=== PATIENT | male | born 1965 | race Caucasian/White ===

== ENCOUNTER 2018-10-06 14:05 | Observation (INO) ==
--- NOTE | 2018-10-06 15:31 | Emergency Department Note ---
Disposition Clinical Impression: Hyponatremia Disposition: Admitted As Inpatient Condition: Fair Referrals: Sharla Bryant, DISPLAYER [Primary Care Provider] - Time of Disposition: 15:32 Recheck wound or abnormal lab - General Chief Complaint: ED Recheck/Abnormal Lab/Rx Stated Complaint: sent per PCP low sodium Time Seen by Provider: 10/06/18 14:37 Source: patient Mode of arrival: private vehicle Limitations: no limitations Nursing Notes Reviewed: Yes Vital Signs Reviewed: Yes - History of Present Illness Pt Subjective Complaint: abnormal lab(s) Initial Visit (ago): hour(s) Initial Visit For: other (Was seen this morning for lab work because he started seeing a new physician.) Description of Abnormal Result: Reportedly has low sodium. Symptoms Since Prior Visit: no new symptoms Context: called for abnormal lab result Associated symptoms: none - Related Data Home Medications Medication Instructions Recorded Confirmed Lisinopril-HCTZ 10-12.5 [Prinzide 1 each PO DAILY 10/06/18 10/06/18 10-12.5] Allergies Allergy/AdvReac Type Severity Reaction Status Date / Time No Known Allergies Allergy Verified 08/14/17 15:47 All systems ED: reviewed and negative except as stated. Constitutional: Denies: fever, chills ENT ED: Denies: ear pain, throat pain, congestion Cardiovascular: Denies: chest pain, palpitations Respiratory: Denies: cough, dyspnea, wheezes Gastrointestinal: Denies: abdominal pain, nausea, vomiting Musculoskeletal: Denies: back pain Integumentary: Denies: rash Neurological: Denies: headache, weakness, numbness, paresthesias Past Medical History - Past Medical History Attestation: Yes The following information was validated with the patient. Source: patient, old records reviewed, obtained from family, nursing notes reviewed Medical history: Reports: hypertension, seizures, other Surgical history: Reports: cholecystectomy Psychiatric history: Reports: no psych history - Social History Smoking Status: Current every day smoker Smokeless Tobacco Status: No Alcohol use: Reports: heavy Drug use: Reports: none Physical Exam - General Limitations: no limitations General appearance: alert, in no apparent distress - Head Head exam: atraumatic, normocephalic, normal inspection - Eye Eye exam: Present: normal appearance, PERRL, EOMI. Absent: scleral icterus, conjunctival injection, periorbital swelling - ENT ENT exam: normal exam, normal oropharynx, mucous membranes moist, normal external ear exam - Neck Neck exam: Present: normal inspection, full ROM, trachea midline, tenderness. Absent: meningismus - Chest Chest inspection: Present: normal inspection, symmetric chest wall rise. Absent: tenderness - Respiratory Respiratory exam: Present: normal lung sounds bilaterally. Absent: respiratory distress, wheezes - Cardiovascular Cardiovascular exam: Present: regular rate, normal rhythm, normal heart sounds - Abdominal Exam Abdominal exam: Present: soft, Non-Tender, normal bowel sounds - Extremities Exam Extremities exam: Present: normal inspection. Absent: pedal edema - Neurological Exam Neurological exam: Present: alert, oriented X3, normal gait. Absent: motor sensory deficit - Psychiatric Psychiatric exam: Present: normal affect, normal mood - Skin Skin exam: Present: warm, dry. Absent: rash Course Course Narrative: Patient presents emergent from the low sodium by lab work. He had seen a new doctor for the first time in 3 years a few days ago. That order labs. He waiting at the labs this morning and then was called back by the office stating that his sodium was low. Talking with the patient has a chronic history of low sodium. He apparently drinks every day. He has had previous admissions for low sodium. When I review his old medical records I see low sodiums frequently. Today's sodium was 1:15. Last year he had an admission in September for sodium 117 as well. Otherwise to sodium seems to run between 123 and 129. Going back to July 2017. Patient is completely asymptomatic. He was only getting the labs as part of getting plugged in with a new doctor. He was not having any symptoms and would not of come to the emergency department had a not called him at this low sodium. On physical examination there are no abnormalities.. Patient needs to be admitted to the hospital for this low sodium but I think he needs hypertonic saline because his hyponatremia is chronically low and he is completely asymptomatic at this point. I will start him on normal saline. I will speak with the hospitalist and arrange admission. - Consultations Consultation #1: Dr. Wylie, hospitalist - I discussed case with the hospitalist. He agrees with normal saline. He is accepted the patient for admission to the hospital. Time: 15:31 Vital Signs Temperature 97.4 F L 10/06/18 14:06 Pulse Rate 85 10/06/18 14:06 Respiratory Rate 16 10/06/18 14:06 Blood Pressure 151/90 10/06/18 14:06 O2 Sat by Pulse Oximetry 99 10/06/18 14:06 Temperature 97.4 F L 10/06/18 14:06 Pulse Rate 82 10/06/18 14:59 Respiratory Rate 16 10/06/18 14:59 Blood Pressure 135/92 10/06/18 14:59 O2 Sat by Pulse Oximetry 100 10/06/18 14:59 Oxygen Delivery Oxygen Delivery Room Air Recheck wound or abnormal lab - Medical Records Medical records reviewed: Yes I reviewed the patient's medical records. - Lab Data Lab results reviewed: Yes I reviewed the patient's lab results. - EKG Data EKG attestation: Yes I reviewed and interpreted this EKG. EKG results narrative: Twelve-lead EKG performed at 14 12 PM. Ordered, reviewed and interpreted by ED physician shows sinus rhythm at a rate of 82. Normal axis. Good hour progression across her precordium. No acute ischemic changes. Intervals are within normal limits.
[2018-10-06] MEDS ORDERED: Naloxone 0.4 MG/ML INJ IVP PRN (16:30)
[2018-10-06] MEDS ORDERED: 0.9 % Sodium Chloride 1,000 ML IVC SCH (16:30)
[2018-10-06] MEDS ORDERED: ALPRAZolam 0.5 MG TABLET PO PRN (18:19)
[2018-10-06] MEDS: Nicotine 21 MG PATCH.TD24 TD SCH (18:26)
[2018-10-06] MEDS ORDERED: 0.9 % Sodium Chloride w KCl 20 MEQ/1,000 ML MLS IVC SCH (18:30)
[2018-10-06] MEDS ORDERED: cefTRIAXone 1,000 MG in Water for inj. (sterile) 20 ML 10 ML IVPB ONE (18:49)
[2018-10-06] MEDS: Cholecalciferol (D-3) 1,000 UNIT TABLET PO SCH (20:09)
[2018-10-07 06:38] LABS: Basophils % 0.6 %; Eosinophils % 0.4 %; Hematocrit 29.1 % (37.5-50.1); Hemoglobin 10.7 g/dL (12.9-16.9); Immature Granulocytes % 1.4 % (0-4); Lymphocytes # 1.7 K/mcL (0.6-4.6); Lymphocytes % 23.2 %; Mean Corpuscular HGB Conc 36.8 g/dL (31.6-35.5); Mean Corpuscular Hemoglobin 34.2 pg (28.0-33.3); Mean Platelet Volume 8.3 fL (9.4-12.4); Monocytes # 0.5 K/mcL (0.0-1.3); Monocytes % 7.2 %; Neutrophils # 4.9 K/mcL (1.6-8.9); Platelet Count 205 K/mcL (140-400); Red Blood Count 3.13 M/mcL (4.19-5.50); Red Cell Distribution Width 11.9 % (11.5-14.5); Segmented Neutrophils % 67.2 %
[2018-10-07 06:54] LABS: Magnesium 1.6 mg/dL (1.6-2.6); Phosphorous 2.6 mg/dL (2.7-4.5)
[2018-10-07 07:02] LABS: BUN/Creatinine Ratio 8 (6-26); Blood Urea Nitrogen 3 mg/dL (6-20); Calcium 7.7 mg/dL (8.6-10.3); Carbon Dioxide 20 mEq/L (23-29); Chloride 91 mEq/L (98-107); Glucose 91 mg/dL (70-105); Osmolality,Calculated 236 (280-300); Potassium 3.8 mEq/L (3.5-5.1); Sodium 115 mEq/L (136-145); eGFR For Non-African Americans > 60 (> 60)
[2018-10-07] MEDS: Cholecalciferol (D-3) 1,000 UNIT TABLET PO SCH (07:57)
[2018-10-07] MEDS: Nicotine 21 MG PATCH.TD24 TD SCH (07:57)
[2018-10-07 10:44] VITALS: BP 128/90
--- NOTE | 2018-10-07 11:55 | Internal Med History&Physical ---
Date of Encounter: 10/07/18 Time of Encounter: 11:20 Assessment and Plan (1) Hyponatremia Current visit: Yes Status: Acute Acute on chronic. Possibly multifactorial etiology including alcohol intake and diuretic use. He has been started on normal saline IV. Lisinopril/HCTZ will be discontinued. (2) Hypophosphatemia Current visit: Yes Status: Acute Phosphorus level slightly low at 2.6. He will be given a dose of Neutra-Phos. (3) Low vitamin D level Current visit: Yes Status: Acute Vitamin D level returned low at 12. He will start vitamin D supplementation. (4) Hematuria Current visit: Yes Status: Acute Suspect UTI. He was given a dose of Rocephin empirically after admission. Qualifiers: Hematuria type: unspecified type Qualified Code(s): R31.9 - Hematuria, unspecified (5) COPD (chronic obstructive pulmonary disease) Current visit: Yes Status: Chronic Presumed. Chest CT will be done to further evaluate. Room air oximetry will be checked on 6 minute walk prior to discharge. Qualifiers: COPD type: unspecified COPD Qualified Code(s): J44.9 - Chronic obstructive pulmonary disease, unspecified (6) Alcoholism /alcohol abuse Current visit: No Status: Chronic Internal Medicine - H&P: HPI Chief complaint: Hyponatremia Admitted From: Emergency Dept Plans for Post Hospital Care: Home History of present illness: Mr. Self is a 53 year old male who was directed by staff at his PCP office to go to emergency room after labs drawn earlier in the day showed sodium level of 115. Patient denies symptoms. He came to emergency room and was admitted to [facility] floor for ongoing care needs. He has chronic hyponatremia with all lab tests since July 2017 showing hyponatremia. He is on lisinopril/HCTZ for hypertension and was unaware that the HCTZ component could cause hyponatremia. He has been prescribed salt tablets but states he quit taking them approximately one month ago. He is an alcoholic and drinks 6-12 beers per day generally. Past Med Surg Social Fam HX - Past Medical History Medical history: arthritis, hypertension, seizures, other Additional medical history: pt states he has arthritis in bilateral hips and left shoulder Psychiatric history: no psych history - Past Surgical History Surgical History: cholecystectomy - Social History Smoking Status: Current every day smoker Smokeless Tobacco Status: No Alcohol use: heavy Drug use: none Internal Medicine - H&P: Meds Lisinopril-HCTZ 10-12.5 [Prinzide 10-12.5] 1 each PO DAILY 10/06/18 [History] Allergy/AdvReac Type Severity Reaction Status Date / Time No Known Allergies Allergy Verified 08/14/17 15:47 All Systems PM: A 10-system review of systems was performed and is negative for pertinent findings except as documented above in the HPI. Review of systems: Gen.: His weight has been stable at approximately 63 kg since July 2017. Cardiovascular: He has history of hypertension but denies NV heart failure angina DVT or pulmonary embolus Respiratory: He has smoked since age 10 up to 2 packs per day. He denies known chronic lung disease and does not use home oxygen. GI: He has had cholecystectomy. He denies known disorders of his liver or exocrine pancreas : He denies hematuria dysuria or kidney stones Neurologic: He had a seizure with hospitalization August 2017 at [facility]. The seizure was felt to be due to hyponatremia with alcohol abuse. He does not take seizure medication. He denies large distribution strokes. He states he falls occasionally at home. Endocrine: He denies diabetes thyroid disease or hyperlipidemia Hematology/oncology: He was unaware he had anemia on labs drawn yesterday. He denies known internal malignancies other blood disorders. Psychiatric: He has anxiety but denies depression or other mental health issues [place] skeletal: He has history of low vitamin D level. 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 He has bilateral hip pain, right greater than left. He denies gout. - Constitutional Vitals: Temp Pulse Resp BP Pulse Ox 98.6 F 83 16 128/90 100 10/07/18 10:43 10/07/18 10:43 10/07/18 10:43 10/07/18 10:43 10/07/18 10:43 Exam: Gen.: He is a well-developed lean male lying in bed who appears in no acute distress HEENT: He has ecchymosis on his chin just left of midline. Eyes: EOMI. There is some conjunctival erythema bilaterally. He has slight exophthalmos. Mouth: Mucosa is moist. Neck: There is no thyromegaly or adenopathy noted. Heart: Regular without murmurs gallops or ectopics Lungs: Has diminished breath sounds diffusely. No wheezes or crackles are heard. Abdomen: Soft and nontender. No masses or guarding are noted. Extremities: There is no cyanosis edema or clubbing noted. Dorsalis pedis and posterior tibial pulses are trace palpable bilaterally. Neurologic: Mental status: He is talkative and a good historian. Cranial nerves: Smile is symmetric. Forehead wrinkles bilaterally. Tongue protrudes midline. EOMI. Motor: There is no pronator drift. Cerebellar: Finger to nose is intact bilaterally. Skin: Warm and dry Internal Med - H&P Results - Labs CBC & Chem 7: 10/07/18 06:20 10/07/18 06:20 Labs: Short CBC 10/07/18 Range/Units 06:20 WBC 7.2 (4.3-11.1) K/mcL Hgb 10.7 L D (12.9-16.9) g/dL Hct 29.1 L (37.5-50.1) % Plt Count 205 (140-400) K/mcL Neutrophils # 4.9 (1.6-8.9) K/mcL BMP 10/07/18 06:20 Sodium 115 L* Potassium 3.8 Chloride 91 L Carbon Dioxide 20 L BUN 3 L Creatinine 0.36 L Glucose 91 Calcium 7.7 L
--- NOTE | 2018-10-07 14:26 | Discharge Summary ---
Orders not resulted at time of discharge: Pending orders 10/07/18 11:53 Urinalysis Reflex Cult & Micro [URIN] Routine Date of Encounter: 10/07/18 Time of Encounter: 14:15 - Discharge Diagnosis (1) Hyponatremia Priority: Primary Status: Acute (2) Hypophosphatemia Priority: Secondary Status: Acute (3) Low vitamin D level Priority: Secondary Status: Acute (4) Hematuria Priority: Secondary Status: Acute Qualifiers: Hematuria type: unspecified type Qualified Code(s): R31.9 - Hematuria, unspecified (5) COPD (chronic obstructive pulmonary disease) Priority: Secondary Status: Chronic Qualifiers: COPD type: unspecified COPD Qualified Code(s): J44.9 - Chronic obstructive pulmonary disease, unspecified (6) Alcoholism /alcohol abuse Priority: Secondary Status: Chronic Hospital course: Mr. Self is a 53 year old male who was directed by staff at his PCP office to go to emergency room after labs drawn earlier in the day showed sodium level of 115. Patient denies symptoms. He came to emergency room and was admitted to [facility] for ongoing care needs. Initial orders were written by the emergency room physician. I saw him on October 07 and performed the history and physical. I felt his hyponatremia was possibly multifactorial etiology including high alcohol intake and diuretic use. I discontinued the lisinopril/HCTZ. He was given IV normal saline but sodium was unchanged at 115 the morning of October 07. Chest, abdomen, and pelvis CT were done to further evaluate. There was no evidence of metastatic disease present. He had ground glass infiltrates in the right lower and left upper lobes presumably infectious/inflammatory. Recommendation for consideration for repeat CT scan in 3 months was made. His PCP can order this. There was a 4 mm right upper lobe nodule most likely benign. There was moderate T12 compression fracture and mild compression fractures at L2 and L3 which appeared chronic but new since August 2017. There was left seventh through ninth rib fractures with seventh rib fracture appearing acute and others indeterminate. Room air oximetry on 6 minute walk showed satisfactory oxygenation. The early afternoon of October 07 the patient became adamant he was not staying in the hospital any longer. He signed out AMA before I could review the results of CT with him. His PCP Sharla Bryant can follow-up on lung abnormality seen on CT. I recommend he remain off lisinopril/HCTZ. - Time Spent with Patient Total time spent providing and/or coordinating discharge services: - Discharge Medications Prescriptions: No Action Lisinopril-HCTZ 10-12.5 [Prinzide 10-12.5] 1 each PO DAILY Home Medications: Lisinopril-HCTZ 10-12.5 [Prinzide 10-12.5] 1 each PO DAILY 10/06/18 [History] Allergies/Adverse Reactions: Allergy/AdvReac Type Severity Reaction Status Date / Time No Known Allergies Allergy Verified 08/14/17 15:47 Date of admission: 10/06/18 15:51 Primary care physician: Sharla Bryant CNP - Constitutional Vitals: Temp Pulse Resp BP Pulse Ox 98.6 F 83 16 128/90 97 10/07/18 10:43 10/07/18 10:43 10/07/18 10:43 10/07/18 10:43 10/07/18 12:45 - Patient Status Disposition: Left Against Medical Advice Condition: Fair - Discharge Instructions Follow Up With: Sharla Bryant CNP [Primary Care Provider] - 1 week
--- NOTE | 2018-10-07 15:30 | Electrocardiograph Report ---
[place] [id number] Test Date: 2018-10-06 Pat Name: Johnathan Self Department: EDP-16 Room: [facility] Gender: M Test Case Developer: : 1965 Requested By: Anthony Malik Order Number: [id number] Reading MD: Mikhail Romo Measurements Intervals [place] Rate: 82 P: 54 WV: 213 QRS: 97 QRSD: 109 T: 42 QT: 388 QTc: 454 Interpretive Statements Sinus rhythm Prolonged [place] interval Borderline right axis deviation Probable anteroseptal infarct, old Electronically Signed On 10-07-2018 15:28:27 EDT by Mikhail oRmo
== END 2018-10-07 13:00 | disposition left against medical advice (07) ==
LOC: INPPIK 14:05 → EMEROOPIK 14:05 → INPPIK 16:11
PROVIDERS: ADMIT Internal Medicine; ATTEND Internal Medicine

== ENCOUNTER 2018-12-11 10:11 | Inpatient (IN) ==
[2018-12-11] MEDS ORDERED: 0.9 % Sodium Chloride 1,000 ML IVC ONE (10:26)
[2018-12-11] MEDS ORDERED: Ondansetron 4 MG/2 ML VIAL IVP ONE (10:26)
--- NOTE | 2018-12-11 10:36 | Emergency Department Note ---
Disposition Clinical Impression: Acute pancreatitis Qualifiers: Pancreatitis type: alcohol induced Acute pancreatitis complication: no infection or necrosis Qualified Code(s): K85.20 - Alcohol induced acute pancreatitis without necrosis or infection Disposition: Admitted As Inpatient Condition: Fair Referrals: NONE,PCP [Non-Partnered Physician] - Forms: ED Satisfaction Letter, Work/School Release Time of Disposition: 12:12 Nausea/Vomiting/Diarrhea HPI - General Chief complaint: ED Abdominal Pain Stated complaint: vomiting Time Seen by Provider: 12/11/18 10:18 Source: patient, family Mode of arrival: private vehicle Limitations: no limitations Nursing Notes Reviewed: Yes Vital Signs Reviewed: Yes - History of Present Illness Pt Subjective Complaint: nausea, vomiting Onset (ago): day(s) (3 days) Description of emesis: food contents, watery Associated Abdominal Pain: Yes If pain, Location of pain: LUQ, RUQ, epigastric Severity: moderate Quality: aching Consistency: constant Improves with: nothing Worsens with: eating Context: alcohol abuse, other (History of hyponatremia) Associated symptoms: Reports: denies other symptoms - Related Data Home Medications Medication Instructions Recorded Confirmed Lisinopril-HCTZ 10-12.5 [Prinzide 1 each PO DAILY 10/06/18 12/11/18 10-12.5] Allergies Allergy/AdvReac Type Severity Reaction Status Date / Time No Known Allergies Allergy Verified 12/11/18 10:12 All systems ED: reviewed and negative except as stated. Constitutional: Denies: fever, chills Eyes: Denies: vision change ENT ED: Denies: ear pain, throat pain, congestion Cardiovascular: Denies: chest pain, palpitations Respiratory: Denies: cough, dyspnea, wheezes Gastrointestinal: Reports: abdominal pain, nausea, vomiting. Denies: diarrhea Genitourinary: Denies: urgency, dysuria Musculoskeletal: Denies: back pain Integumentary: Denies: rash Neurological: Denies: headache Past Medical History - Past Medical History Attestation: Yes The following information was validated with the patient. Source: patient, old records reviewed, obtained from family, nursing notes reviewed Medical history: Reports: arthritis, hypertension, seizures, other Surgical history: Reports: cholecystectomy Psychiatric history: Reports: no psych history, depression - Social History Smoking Status: Current every day smoker Smokeless Tobacco Status: No Alcohol use: Reports: heavy Drug use: Reports: none Physical Exam - General Limitations: no limitations General appearance: alert, in no apparent distress - Head Head exam: atraumatic, normocephalic, normal inspection - Eye Eye exam: Present: normal appearance, PERRL, EOMI. Absent: scleral icterus, conjunctival injection - ENT ENT exam: normal exam, normal oropharynx, mucous membranes moist, normal external ear exam - Neck Neck exam: Present: normal inspection, full ROM, trachea midline. Absent: meningismus - Chest Chest inspection: Present: normal inspection, symmetric chest wall rise. Absent: tenderness - Respiratory Respiratory exam: Present: normal lung sounds bilaterally. Absent: respiratory distress, wheezes - Cardiovascular Cardiovascular exam: Present: regular rate, normal rhythm, normal heart sounds - Abdominal Exam Abdominal exam: Present: soft, tenderness. Absent: distention Abdominal tenderness: Present: RUQ, LUQ, epigastrium - Extremities Exam Extremities exam: Present: normal inspection. Absent: pedal edema - Neurological Exam Neurological exam: Present: alert, oriented X3 - Psychiatric Psychiatric exam: Present: normal affect, normal mood - Skin Skin exam: Present: warm, dry. Absent: rash Course Course Narrative: Patient presents with nausea and vomiting for the past few days. He has a history of alcoholism and hyponatremia. Recent hospitalization in September for severe hyponatremia of 1:15. All of his symptoms could be related to hy ponatremia. However he does have abdominal discomfort and tenderness. That might be soreness due to vomiting but it could be hepatitis or pancreatitis so we will need to look at those issues as well. I will get him medications for symptom relief. Started him on normal saline. Disposition will be based on diagnostic results and reevaluation. - Reevaluation(s) Reevaluation #1: Workup shows elevated lipase and the CAT scan shows pancreatitis without, lo cation. Sodium level is 123 which is low but significantly better than it has been in the past. This issue is acute pancreatitis. I discussed with the patient the diagnosis and management plan. He is not sure he can stay a couple days in the hospital but is willing to at least overnight. I will go ahead and get him admitted. Already spoken with the hospitalist, Dr. Wylie. He has septic patient for admission. The patient is a smoker so we will get him a nicotine patch. He is also a drinker so I will schedule Ativan to at least take some of the edge off. He has not drank in 2 days and denies ever having had a trouble with shakes after drinking but his hands do seem a little twitchy right now. Over his mental status is normal and he shows no signs of DTs. Time: 12:10 - Consultations Consultation #1: Dr. Wylie, hospitalist - I discussed case with the hospice. He accepted the patient for admission. Time: 11:50 Vital Signs Temperature 98.1 F 12/11/18 10:15 Pulse Rate 96 12/11/18 10:15 Respiratory Rate 18 12/11/18 10:15 Blood Pressure 161/114 12/11/18 10:15 O2 Sat by Pulse Oximetry 98 12/11/18 10:15 Temperature 98.1 F 12/11/18 10:15 Pulse Rate 80 12/11/18 11:14 Respiratory Rate 20 12/11/18 11:14 Blood Pressure 153/104 12/11/18 11:14 O2 Sat by Pulse Oximetry 99 12/11/18 11:14 Oxygen Delivery Oxygen Delivery Room Air Nausea/Vomiting/Diarrhea - Medical Records Medical records reviewed: Yes I reviewed the patient's medical records. - Lab Data Lab results reviewed: Yes I reviewed the patient's lab results. Result diagrams: 12/11/18 10:57 12/11/18 10:57 Lab Results 12/11/18 12/11/18 12/11/18 Range/Units 10:35 10:35 10:57 WBC 11.5 H (4.3-11.1) K/mcL RBC 4.42 (4.19-5.50) M/mcL Hgb 15.1 (12.9-16.9) g/dL Hct 41.0 (37.5-50.1) % MCV 92.8 (83.0-100.0) fL MCH 34.2 H (28.0-33.3) pg MCHC 36.8 H (31.6-35.5) g/dL RDW 12.8 (11.5-14.5) % Plt Count 247 (140-400) K/mcL MPV 8.4 L (9.4-12.4) fL Immature Gran % 0.4 (0-4) % Seg Neutrophils % 79.3 % Lymphocytes % 13.6 % Monocytes % 6.4 % Eosinophils % 0.0 % Basophils % 0.3 % Neutrophils # 9.1 H (1.6-8.9) K/mcL Lymphocytes # 1.6 (0.6-4.6) K/mcL Monocytes # 0.7 (0.0-1.3) K/mcL Eosinophils # 0.0 (0.0-0.6) K/mcL Basophils # 0.0 (0.0-0.2) K/mcL PT (9.4-12.1) Seconds INR APTT (26.0-36.0) Seconds Sodium (136-145) mEq/L Potassium (3.5-5.1) mEq/L Chloride (98-107) mEq/L Carbon Dioxide (23-29) mEq/L BUN (6-20) mg/dL Creatinine (0.70-1.30) mg/dL Est GFR ( Amer) (> 60) Est GFR (Non-Af Amer) (> 60) BUN/Creatinine Ratio (6-26) Glucose (70-105) mg/dL Calculated Osmolality (280-300) Lactic Acid (0.5-2.2) mmol/L Calcium (8.6-10.3) mg/dL Total Bilirubin (0.3-1.0) mg/dL Direct Bilirubin (0.0-0.2) mg/dL Indirect Bilirubin (0.0-1.2) mg/dL AST (13-39) Units/L ALT (7-52) Units/L Alkaline Phosphatase (34-104) Units/L Troponin I (< 0.04) ng/mL Serum Total Protein (6.4-8.9) g/dL Albumin (3.5-5.7) g/dL Globulin (2.4-3.5) g/dL Albumin/Globulin Ratio (1.1-2.2) Lipase (11-82) Units/L Urine Color Yellow (Yellow) Urine Clarity Turbid A (Clear) Urine pH 7.0 (5.0-8.0) pH Units Ur Specific [place] 1.020 (1.010-1.025) Urine Protein 100 H (Neg-Trace) mg/dL Urine Glucose (UA) Normal (Normal) mg/dL Urine Ketones Trace H (Negative) mg/dL Urine Blood Large H (Negative) Urine Nitrite Negative (Negative) Urine Bilirubin Small H (Negative) Urine Urobilinogen Normal (Normal) mg/dL Ur Leukocyte Esterase Large H (Negative) Urine Microscopic RBC TNTC H (0-3) per hpf Urine Microscopic WBC TNTC H (0-3) per hpf Urine Bacteria Moderate H (None-Few) per hpf Urine Mucus Few (Few) Ur Culture Indicated? YES A (NO) Urine Opiates Screen Negative (Rmvqcg=247) ng/mL Ur Oxycodone Screen Negative (Cutoff= 100) ng/mL Ur Barbiturates Screen Negative (Xdygut=446) ng/mL Ur Phencyclidine Scrn Negative (Cutoff=25) ng/mL Ur Amphetamines Screen Negative (Sktaci=3247) ng/mL U Benzodiazepines Scrn Negative (Wolyjj=903) ng/mL Urine Cocaine Screen Negative (Cutoff= 300) ng/mL U Marijuana (THC) Screen Negative (Cutoff = 50) ng/mL Ur Drug Screen Interp See Below Ethyl Alcohol (Less than 10) mg/dL 12/11/18 12/11/18 12/11/18 Range/Units 10:57 10:57 10:57 WBC (4.3-11.1) K/mcL RBC (4.19-5.50) M/mcL Hgb (12.9-16.9) g/dL Hct (37.5-50.1) % MCV (83.0-100.0) fL MCH (28.0-33.3) pg MCHC (31.6-35.5) g/dL RDW (11.5-14.5) % Plt Count (140-400) K/mcL MPV (9.4-12.4) fL Immature Gran % (0-4) % Seg Neutrophils % % Lymphocytes % % Monocytes % % Eosinophils % % Basophils % % Neutrophils # (1.6-8.9) K/mcL Lymphocytes # (0.6-4.6) K/mcL Monocytes # (0.0-1.3) K/mcL Eosinophils # (0.0-0.6) K/mcL Basophils # (0.0-0.2) K/mcL PT (9.4-12.1) Seconds INR APTT 33.5 (26.0-36.0) Seconds Sodium 123 L (136-145) mEq/L Potassium 3.3 L (3.5-5.1) mEq/L Chloride 86 L (98-107) mEq/L Carbon Dioxide 27 (23-29) mEq/L BUN 4 L (6-20) mg/dL Creatinine 0.61 L (0.70-1.30) mg/dL Est GFR ( Amer) > 60 (> 60) Est GFR (Non-Af Amer) > 60 (> 60) BUN/Creatinine Ratio 7 (6-26) Glucose 124 H (70-105) mg/dL Calculated Osmolality 254 L (280-300) Lactic Acid 1.9 (0.5-2.2) mmol/L Calcium 9.1 (8.6-10.3) mg/dL Total Bilirubin 0.7 (0.3-1.0) mg/dL Direct Bilirubin 0.1 (0.0-0.2) mg/dL Indirect Bilirubin 0.6 (0.0-1.2) mg/dL AST 32 (13-39) Units/L ALT 24 (7-52) Units/L Alkaline Phosphatase 109 H (34-104) Units/L Troponin I (< 0.04) ng/mL Serum Total Protein 7.2 (6.4-8.9) g/dL Albumin 3.4 L (3.5-5.7) g/dL Globulin 3.8 H (2.4-3.5) g/dL Albumin/Globulin Ratio 0.9 L (1.1-2.2) Lipase (11-82) Units/L Urine Color (Yellow) Urine Clarity (Clear) Urine pH (5.0-8.0) pH Units Ur Specific [place] (1.010-1.025) Urine Protein (Neg-Trace) mg/dL Urine Glucose (UA) (Normal) mg/dL Urine Ketones (Negative) mg/dL Urine Blood (Negative) Urine Nitrite (Negative) Urine Bilirubin (Negative) Urine Urobilinogen (Normal) mg/dL Ur Leukocyte Esterase (Negative) Urine Microscopic RBC (0-3) per hpf Urine Microscopic WBC (0-3) per hpf Urine Bacteria (None-Few) per hpf Urine Mucus (Few) Ur Culture Indicated? (NO) Urine Opiates Screen (Vmjfkx=526) ng/mL Ur Oxycodone Screen (Cutoff= 100) ng/mL Ur Barbiturates Screen (Lnrnkw=788) ng/mL Ur Phencyclidine Scrn (Cutoff=25) ng/mL Ur Amphetamines Screen (Erbqov=1378) ng/mL U Benzodiazepines Scrn (Cdvanm=409) ng/mL Urine Cocaine Screen (Cutoff= 300) ng/mL U Marijuana (THC) Screen (Cutoff = 50) ng/mL Ur Drug Screen Interp Ethyl Alcohol < 10 (Less than 10) mg/dL 12/11/18 12/11/18 Range/Units 10:57 10:57 WBC (4.3-11.1) K/mcL RBC (4.19-5.50) M/mcL Hgb (12.9-16.9) g/dL Hct (37.5-50.1) % MCV (83.0-100.0) fL MCH (28.0-33.3) pg MCHC (31.6-35.5) g/dL RDW (11.5-14.5) % Plt Count (140-400) K/mcL MPV (9.4-12.4) fL Immature Gran % (0-4) % Seg Neutrophils % % Lymphocytes % % Monocytes % % Eosinophils % % Basophils % % Neutrophils # (1.6-8.9) K/mcL Lymphocytes # (0.6-4.6) K/mcL Monocytes # (0.0-1.3) K/mcL Eosinophils # (0.0-0.6) K/mcL Basophils # (0.0-0.2) K/mcL PT 12.7 H (9.4-12.1) Seconds INR 1.1 APTT (26.0-36.0) Seconds Sodium (136-145) mEq/L Potassium (3.5-5.1) mEq/L Chloride (98-107) mEq/L Carbon Dioxide (23-29) mEq/L BUN (6-20) mg/dL Creatinine (0.70-1.30) mg/dL Est GFR ( Amer) (> 60) Est GFR (Non-Af Amer) (> 60) BUN/Creatinine Ratio (6-26) Glucose (70-105) mg/dL Calculated Osmolality (280-300) Lactic Acid (0.5-2.2) mmol/L Calcium (8.6-10.3) mg/dL Total Bilirubin (0.3-1.0) mg/dL Direct Bilirubin (0.0-0.2) mg/dL Indirect Bilirubin (0.0-1.2) mg/dL AST (13-39) Units/L ALT (7-52) Units/L Alkaline Phosphatase (34-104) Units/L Troponin I < 0.03 (< 0.04) ng/mL Serum Total Protein (6.4-8.9) g/dL Albumin (3.5-5.7) g/dL Globulin (2.4-3.5) g/dL Albumin/Globulin Ratio (1.1-2.2) Lipase > 1800 H (11-82) Units/L Urine Color (Yellow) Urine Clarity (Clear) Urine pH (5.0-8.0) pH Units Ur Specific [place] (1.010-1.025) Urine Protein (Neg-Trace) mg/dL Urine Glucose (UA) (Normal) mg/dL Urine Ketones (Negative) mg/dL Urine Blood (Negative) Urine Nitrite (Negative) Urine Bilirubin (Negative) Urine Urobilinogen (Normal) mg/dL Ur Leukocyte Esterase (Negative) Urine Microscopic RBC (0-3) per hpf Urine Microscopic WBC (0-3) per hpf Urine Bacteria (None-Few) per hpf Urine Mucus (Few) Ur Culture Indicated? (NO) Urine Opiates Screen (Sulwwt=283) ng/mL Ur Oxycodone Screen (Cutoff= 100) ng/mL Ur Barbiturates Screen (Tvkbft=501) ng/mL Ur Phencyclidine Scrn (Cutoff=25) ng/mL Ur Amphetamines Screen (Vmmejc=4423) ng/mL U Benzodiazepines Scrn (Esznab=537) ng/mL Urine Cocaine Screen (Cutoff= 300) ng/mL U Marijuana (THC) Screen (Cutoff = 50) ng/mL Ur Drug Screen Interp Ethyl Alcohol (Less than 10) mg/dL - Radiology Data Radiology results reviewed: Yes I reviewed the patient's radiology results. - EKG Data EKG attestation: Yes I reviewed and interpreted this EKG. EKG results narrative: Twelve-lead EKG performed at 10:46 AM. Ordered, reviewed and interpreted by ED physician shows sinus rhythm at a rate of 84. Normal axis. Good hour progression across precordium. No acute ischemic changes. Intervals are within normal limits.
[2018-12-11 10:39] LABS: Bilirubin,Urine Small (Negative); Blood,Urine Large (Negative); Clarity,Urine Turbid (Clear); Color,Urine Yellow (Yellow); Glucose,Urine (UA) Normal (Normal); Ketones,Urine Trace mg/dL (Negative); Leukocyte Esterase,Urine Large (Negative); Nitrite,Urine Negative (Negative); Protein,Urine 100 mg/dL (Neg-Trace); Urobilinogen,Urine Normal (Normal)
[2018-12-11 10:45] LABS: Bacteria,Urine Moderate per hpf (None-Few); Mucus,Urine Few (Few); RBC,Urine TNTC per hpf (0-3); WBC,Urine TNTC per hpf (0-3)
[2018-12-11 10:55] LABS: Amphetamine Screen,Urine Negative ng/mL (Cutoff=1000); Barbiturate Screen,Urine Negative ng/mL (Cutoff=200); Benzodiazepines Screen,Urine Negative ng/mL (Cutoff=200); Cannabinoid Screen,Urine Negative ng/mL (Cutoff = 50); Cocaine Screen,Urine Negative ng/mL (Cutoff= 300); Opiate Screen,Urine Negative ng/mL (Cutoff=300); Phencyclidine Screen,Urine Negative ng/mL (Cutoff=25)
[2018-12-11 11:06] LABS: Basophils % 0.3 %; Hemoglobin 15.1 g/dL (12.9-16.9); Immature Granulocytes % 0.4 % (0-4); Lymphocytes # 1.6 K/mcL (0.6-4.6); Lymphocytes % 13.6 %; Mean Corpuscular HGB Conc 36.8 g/dL (31.6-35.5); Mean Corpuscular Hemoglobin 34.2 pg (28.0-33.3); Mean Corpuscular Volume 92.8 fL (83.0-100.0); Mean Platelet Volume 8.4 fL (9.4-12.4); Monocytes # 0.7 K/mcL (0.0-1.3); Monocytes % 6.4 %; Neutrophils # 9.1 K/mcL (1.6-8.9); Platelet Count 247 K/mcL (140-400); Red Blood Count 4.42 M/mcL (4.19-5.50); Red Cell Distribution Width 12.8 % (11.5-14.5); Segmented Neutrophils % 79.3 %; White Blood Count 11.5 K/mcL (4.3-11.1)
[2018-12-11 11:13] LABS: INR 1.1; Prothrombin Time 12.7 Seconds (9.4-12.1)
[2018-12-11 11:24] LABS: Alanine Aminotransferase 24 Units/L (7-52); Albumin 3.4 g/dL (3.5-5.7); Albumin/Globulin Ratio 0.9 (1.1-2.2); Alkaline Phosphatase 109 Units/L (34-104); Aspartate Amino Transferase 32 Units/L (13-39); BUN/Creatinine Ratio 7 (6-26); Bilirubin,Direct 0.1 mg/dL (0.0-0.2); Bilirubin,Indirect 0.6 mg/dL (0.0-1.2); Bilirubin,Total 0.7 mg/dL (0.3-1.0); Blood Urea Nitrogen 4 mg/dL (6-20); Calcium 9.1 mg/dL (8.6-10.3); Carbon Dioxide 27 mEq/L (23-29); Chloride 86 mEq/L (98-107); Ethanol < 10 mg/dL (Less than 10); Globulin 3.8 g/dL (2.4-3.5); Glucose 124 mg/dL (70-105); Osmolality,Calculated 254 (280-300); Potassium 3.3 mEq/L (3.5-5.1); Sodium 123 mEq/L (136-145); Total Protein 7.2 g/dL (6.4-8.9); Troponin I < 0.03 ng/mL (< 0.04); eGFR For African Americans > 60 (> 60); eGFR For Non-African Americans > 60 (> 60)
[2018-12-11 11:35] LABS: Lipase > 1800 Units/L (11-82)
[2018-12-11] MEDS ORDERED: Naloxone 0.4 MG/ML INJ IVP PRN (12:35)
[2018-12-11] MEDS ORDERED: *HR* LORazepam 2 MG/ML VIAL IVP ONE (12:35)
[2018-12-11] MEDS ORDERED: 0.9 % Sodium Chloride 1,000 ML IVC SCH (12:35)
[2018-12-11] MEDS ORDERED: Ondansetron 4 MG/2 ML VIAL IVP PRN ×2 (12:35→15:01)
[2018-12-11] MEDS ORDERED: Nicotine 14 MG PATCH.TD24 TD SCH (14:15)
[2018-12-11] MEDS ORDERED: *HR* FentaNYL (PF) 100 MCG/2 ML VIAL IVP SCH (15:00)
[2018-12-11] MEDS ORDERED: *HR* FentaNYL (PF) 100 MCG/2 ML VIAL IVP PRN (15:01)
--- NOTE | 2018-12-11 15:04 | Internal Med History&Physical ---
Date of Encounter: 12/11/18 Time of Encounter: 14:35 Assessment and Plan (1) Acute pancreatitis Current visit: Yes Status: Acute Possibly secondary to alcohol ingestion with use of HCTZ. He will be given IV fluids. Antiemetics and analgesics will be given as needed. Diet will be advanced as tolerated. Qualifiers: Pancreatitis type: alcohol induced Acute pancreatitis complication: no infection or necrosis Qualified Code(s): K85.20 - Alcohol induced acute pancreatitis without necrosis or infection (2) Hypokalemia Current visit: Yes Status: Acute Likely secondary to vomiting, diarrhea, and HCTZ use. Supplemental potassium will be given. (3) Hyponatremia Current visit: No Status: Acute Likely secondary to vomiting, diarrhea, and HCTZ use. Normal saline has been ordered. Labs will be rechecked in a.m. (4) Alcoholism /alcohol abuse Current visit: No Status: Chronic He will be given Xanax as needed for withdrawal symptoms. (5) Low vitamin D level Current visit: No Status: Acute Vitamin D level was 12 ng/mL on 10/06/2018. Recheck in a.m. (6) COPD (chronic obstructive pulmonary disease) Current visit: No Status: Chronic Albuterol nebs will be given as needed. NicoDerm patch has been ordered. Qualifiers: COPD type: unspecified COPD Qualified Code(s): J44.9 - Chronic obstructive pulmonary disease, unspecified (7) Hematuria Current visit: No Status: Acute Urine culture and sensitivity has been ordered. Empiric antibiotics and probiotics will be given. Qualifiers: Hematuria type: unspecified type Qualified Code(s): R31.9 - Hematuria, unspecified Internal Medicine - H&P: HPI Chief complaint: Abdominal pain and vomiting Admitted From: Emergency Dept Plans for Post Hospital Care: Home History of present illness: Mr. Abebe is a 53 year old male who came to emergency room stating he had nu merous episodes of nonbloody vomiting onset approximately 3 days previously. He also reports several episodes of diarrhea without visible blood. He denies fevers or chills. He reports pain in his left upper abdominal area since onset of vomiting. He was evaluated in emergency room and was felt to have acute pancreatitis. He was admitted to [facility] floor for ongoing care needs. He denies previous episodes of pancreatitis. He states he typically drinks 4 beers per day but has been a heavier drinker in the recent past. He denies use of hard liquor. He has had cholecystectomy. He denies known disorders of his liver. Abdominal CT showed hepatic steatosis. Past Med Surg Social Fam HX - Past Medical History Medical history: arthritis, hypertension, seizures, other Additional medical history: pt states he has arthritis in bilateral hips and left shoulder. HYPONATREMIA Psychiatric history: no psych history, depression - Past Surgical History Surgical History: cholecystectomy - Social History Smoking Status: Current every day smoker Packs per day: 1 Smokeless Tobacco Status: No Alcohol use: heavy Drug use: none Internal Medicine - H&P: Meds Lisinopril-HCTZ 10-12.5 [Prinzide 10-12.5] 1 each PO DAILY 10/06/18 [History] Allergy/AdvReac Type Severity Reaction Status Date / Time No Known Allergies Allergy Verified 12/11/18 10:12 All Systems PM: A 10-system review of systems was performed and is negative for pertinent findings except as documented above in the HPI. Review of systems: Review of systems from his September 2018 [facility] hospitalization were reviewed and revised as below. Gen.: His weight has been stable at approximately 63 kg since July 2017. Cardiovascular: He has history of hypertension but denies VT heart failure angina DVT or pulmonary embolus Respiratory: He has smoked since age 10 up to 2 packs per day. He denies known chronic lung disease and does not use home oxygen. GI: As per history of present illness : He denies hematuria dysuria or kidney stones Neurologic: He had a seizure with hospitalization August 2017 at [facility]. The seizure was felt to be due to hyponatremia with alcohol abuse. He does not take seizure medication. He denies large distribution strokes. He states he falls occasionally at home but has not fallen recently. Endocrine: He denies diabetes thyroid disease or hyperlipidemia Hematology/oncology: He had anemia on labs 10/07/2018. This had resolved on admission labs today. He denies known internal malignancies other blood disorders. Psychiatric: He has anxiety but denies depression or other mental health issues [place] skeletal: He has history of low vitamin D level. 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 He has bilateral hip pain, right greater than left. He denies gout. - Constitutional Vitals: Temp Pulse Resp BP Pulse Ox 98.7 F 84 16 158/100 99 12/11/18 14:00 12/11/18 14:00 12/11/18 14:00 12/11/18 14:00 12/11/18 14:00 Exam: Gen.: He is a well-developed well-nourished male lying in bed who appears in slight discomfort HEENT: Head is traumatic and normocephalic. Eyes: EOMI. There is no scleral icterus. Mouth: Mucosa is moist. Neck: Supple and nontender. There is no thyromegaly or adenopathy noted. Heart: Regular without murmurs gallops or ectopics Lungs: No wheezes or crackles are heard. Abdomen: Bowel sounds are present but diminished. There is tenderness to palpation. No guarding is noted. Extremities: There is no cyanosis edema or clubbing noted. Dorsalis pedis and posterior tibial pulses are trace to 1+ palpable bilaterally. Neurologic: Mental status: He is talkative and a good historian. Cranial nerves: Smile is symmetric. Forehead reveals bilaterally. Tongue protrudes midline. EOMI. Motor: There is no pronator drift. Cerebellar: Finger to nose is intact bilaterally. Skin: Warm and dry Internal Med - H&P Results - Labs CBC & Chem 7: 12/11/18 10:57 12/11/18 10:57 Labs: Short CBC 12/11/18 Range/Units 10:57 WBC 11.5 H (4.3-11.1) K/mcL Hgb 15.1 (12.9-16.9) g/dL Hct 41.0 (37.5-50.1) % Plt Count 247 (140-400) K/mcL Neutrophils # 9.1 H (1.6-8.9) K/mcL BMP 12/11/18 10:57 Sodium 123 L Potassium 3.3 L Chloride 86 L Carbon Dioxide 27 BUN 4 L Creatinine 0.61 L Glucose 124 H Calcium 9.1 Cardiac Enzymes 12/11/18 Range/Units 10:57 Troponin I < 0.03 (< 0.04) ng/mL Liver Function 12/11/18 Range/Units 10:57 Total Bilirubin 0.7 (0.3-1.0) mg/dL Direct Bilirubin 0.1 (0.0-0.2) mg/dL AST 32 (13-39) Units/L ALT 24 (7-52) Units/L Alkaline Phosphatase 109 H (34-104) Units/L Albumin 3.4 L (3.5-5.7) g/dL Urine 12/11/18 Range/Units 10:35 Urine Color Yellow (Yellow) Urine Clarity Turbid A (Clear) Urine pH 7.0 (5.0-8.0) pH Units Ur Specific [place] 1.020 (1.010-1.025) Urine Protein 100 H (Neg-Trace) mg/dL Urine Glucose (UA) Normal (Normal) mg/dL - Impressions ITS Impressions Chest X-Ray 12/11/18 10:25 IMPRESSION: No acute pulmonary finding. However, there is a possible 1 cm pulmonary nodule within the right upper lobe which appears new from July [address] scan of the chest to confirm or exclude. RECOMMENDATION: Nonurgent CT scan of the chest-rule out pulmonary nodule right upper lobe. D/ / Clayton Henry MD / Clayton Henry MD Interpreting Provider: Clayton Henry MD Abdomen/Pelvis CT 12/11/18 11:27 IMPRESSION: 1. Findings typical of acute pancreatitis, suboptimally evaluated without IV contrast. Correlate with serum amylase/lipase levels. 2. Chronic diffuse urinary bladder wall thickening may be related to chronic urinary bladder outlet obstruction, cystitis or neurogenic bladder. 3. Hepatic steatosis. 4. Cholecystectomy. 5. Calcific atherosclerotic disease aorta. 6. Chronic degenerative changes lumbar spine with prominent Schmorl's nodes. 7. Chronic anterior wedging T12. 8. Slight degenerative retrolisthesis L5 on S1. D/ / Anuel Chand / Anuel Chand Interpreting Provider: Anuel Chand
[2018-12-11] MEDS ORDERED: Albuterol 2.5 MG/3 ML NEBULIZER IH PRN (15:17)
[2018-12-11] MEDS ORDERED: *HR* Labetalol 100 MG/20 ML MDV IVP ONE (15:18)
[2018-12-11] MEDS: 0.45 % Sodium Chloride w/KCl 20 MEQ/1,000 ML MLS IVC SCH (16:06)
[2018-12-11] MEDS: Nicotine 21 MG PATCH.TD24 TD SCH (16:11)
[2018-12-11] MEDS: Thiamine (B-1) 100 MG TABLET PO SCH (16:14)
[2018-12-11] MEDS: ALPRAZolam 0.5 MG TABLET PO PRN (20:27)
[2018-12-11] MEDS: Lactobacillus 1 EACH CAP.SPRINK PO SCH (20:27)
[2018-12-12] MEDS: 0.45 % Sodium Chloride w/KCl 20 MEQ/1,000 ML MLS IVC SCH ×3 (00:10→16:45)
[2018-12-12] MEDS: ALPRAZolam 0.5 MG TABLET PO PRN ×3 (04:25→20:18)
[2018-12-12 05:00] LABS: Basophils % 0.2 %; Eosinophils # 0.1 K/mcL (0.0-0.6); Eosinophils % 0.8 %; Hematocrit 31.6 % (37.5-50.1); Hemoglobin 11.6 g/dL (12.9-16.9); Immature Granulocytes % 0.5 % (0-4); Lymphocytes % 23.4 %; Mean Corpuscular HGB Conc 36.7 g/dL (31.6-35.5); Mean Corpuscular Hemoglobin 34.6 pg (28.0-33.3); Mean Corpuscular Volume 94.3 fL (83.0-100.0); Mean Platelet Volume 8.8 fL (9.4-12.4); Monocytes # 0.7 K/mcL (0.0-1.3); Monocytes % 8.2 %; Neutrophils # 5.8 K/mcL (1.6-8.9); Platelet Count 213 K/mcL (140-400); Red Blood Count 3.35 M/mcL (4.19-5.50); Segmented Neutrophils % 66.9 %; White Blood Count 8.7 K/mcL (4.3-11.1)
[2018-12-12 05:24] LABS: Chol/HDL Ratio 1.6 (0-4.9)
[2018-12-12 05:25] LABS: BUN/Creatinine Ratio 10 (6-26); Blood Urea Nitrogen 5 mg/dL (6-20); Calcium 7.9 mg/dL (8.6-10.3); Carbon Dioxide 23 mEq/L (23-29); Chloride 93 mEq/L (98-107); Glucose 81 mg/dL (70-105); Osmolality,Calculated 250 (280-300); Potassium 3.5 mEq/L (3.5-5.1); Sodium 122 mEq/L (136-145); eGFR For African Americans > 60 (> 60); eGFR For Non-African Americans > 60 (> 60)
[2018-12-12 05:34] LABS: Thyroid Stimulating Hormone 1.737 mcIU/mL (0.340-5.600)
[2018-12-12] MEDS ORDERED: Nicotine 14 MG PATCH.TD24 TD SCH ×2 (09:00)
[2018-12-12] MEDS: Lactobacillus 1 EACH CAP.SPRINK PO SCH ×2 (10:16→20:18)
[2018-12-12] MEDS: Thiamine (B-1) 100 MG TABLET PO SCH (10:17)
[2018-12-12] MEDS: Nicotine 21 MG PATCH.TD24 TD SCH (10:17)
--- NOTE | 2018-12-12 10:40 | Internal Med Progress Note ---
Date of Encounter: 12/12/18 Time of Encounter: 10:35 - Assessment and plan (1) Acute pancreatitis Current Visit: Yes Status: Acute Assessment and plan: Patient's lipase came down from greater than 1800 to 835 will follow-up a lipase level in the morning Qualifiers: Pancreatitis type: alcohol induced Acute pancreatitis complication: no infection or necrosis Qualified Code(s): K85.20 - Alcohol induced acute pancreatitis without necrosis or infection (2) Hyponatremia Current Visit: No Status: Acute Assessment and plan: Did not increase, add sodium tablets and recheck in the morning (3) Generalized seizure Current Visit: No Status: Resolved Assessment and plan: Improving he feels stronger no seizure activity (4) Hematuria Current Visit: No Status: Acute Assessment and plan: White count is better after the Levaquin Qualifiers: Hematuria type: unspecified type Qualified Code(s): R31.9 - Hematuria, unspecified (5) Hypokalemia Current Visit: Yes Status: Acute Assessment and plan: Back to normal continue supplementation follow-up labs (6) Alcoholism /alcohol abuse Current Visit: No Status: Chronic Assessment and plan: Do not use alcohol (7) Hypomagnesemia Current Visit: Yes Status: Acute Assessment and plan: Follow-up lab in the morning - Time Spent With Patient 25 - 35 minutes - Subjective Interval history: 53-year-old male was admitted for acute pancreatitis hypokalemia, hyponatremia, hematuria was initially admitted by Dr. Wylie his lipase was greater than 1800, sodium was 123, white count was 11.5. His white count came down to normal 8.7 after Rocephin, his sodium stayed down of 122 despite being on half-normal saline, magnesium stay low at 1.5, calcium 7.9. His lipase came down to 835. He asked if he could be discharged tomorrow. I think that is optimistic but it is possible. Reviewed his chest x-ray that showed a 1 cm pulmonary nodule right upper lobe he can follow up with them his primary care provider for that. CT scan in addition acute pancreatitis showed urinary bladder thickening, hepatic steatosis explaining nose, lumbar DDD wedge resection, T12, retrolisthesis L5-S1 he said these changes are chronic. Answers questions she is no longer having nausea vomiting abdominal pain is improved dramatically. He has had low sodium before and asked about being put on a sodium tablet. Answers questions address his concerns. - Constitutional Vitals: Temp Pulse Resp BP Pulse Ox 98.3 F 84 16 154/101 96 12/12/18 06:50 12/12/18 06:50 12/12/18 06:50 12/12/18 06:50 12/12/18 06:50 Exam: General: Alert and oriented, no acute distress Lungs: Clear to auscultation bilaterally without wheezing or crackles Heart: Regular rate and rythms without murmer or rubs Abdomen: Soft, nontender, Extremities: no edema, redness Internal Medicine: Result - Labs CBC & Chem 7: 12/12/18 04:15 12/12/18 04:15 Labs: Short CBC 12/11/18 12/12/18 Range/Units 10:57 04:15 WBC 11.5 H 8.7 (4.3-11.1) K/mcL Hgb 15.1 11.6 L D (12.9-16.9) g/dL Hct 41.0 31.6 L (37.5-50.1) % Plt Count 247 213 (140-400) K/mcL Neutrophils # 9.1 H 5.8 (1.6-8.9) K/mcL BMP 12/11/18 12/12/18 10:57 04:15 Sodium 123 L 122 L Potassium 3.3 L 3.5 Chloride 86 L 93 L Carbon Dioxide 27 23 BUN 4 L 5 L Creatinine 0.61 L 0.48 L Glucose 124 H 81 Calcium 9.1 7.9 L Cardiac Enzymes 12/11/18 Range/Units 10:57 Troponin I < 0.03 (< 0.04) ng/mL Liver Function 12/11/18 Range/Units 10:57 Total Bilirubin 0.7 (0.3-1.0) mg/dL Direct Bilirubin 0.1 (0.0-0.2) mg/dL AST 32 (13-39) Units/L ALT 24 (7-52) Units/L Alkaline Phosphatase 109 H (34-104) Units/L Albumin 3.4 L (3.5-5.7) g/dL Urine 12/11/18 Range/Units 10:35 Urine Color Yellow (Yellow) Urine Clarity Turbid A (Clear) Urine pH 7.0 (5.0-8.0) pH Units Ur Specific [place] 1.020 (1.010-1.025) Urine Protein 100 H (Neg-Trace) mg/dL Urine Glucose (UA) Normal (Normal) mg/dL - ABG Interpretation ABG results: PT/INR, D-dimer PT 12.7 Seconds (9.4-12.1) H 12/11/18 10:57 - Impressions Impressions Chest X-Ray 12/11/18 10:25 IMPRESSION: No acute pulmonary finding. However, there is a possible 1 cm pulmonary nodule within the right upper lobe which appears new from July [address] scan of the chest to confirm or exclude. RECOMMENDATION: Nonurgent CT scan of the chest-rule out pulmonary nodule right upper lobe. D/ / Clayton Henry MD / Clayton Henry MD Interpreting Provider: Clayton Henry MD Abdomen/Pelvis CT 12/11/18 11:27 IMPRESSION: 1. Findings typical of acute pancreatitis, suboptimally evaluated without IV contrast. Correlate with serum amylase/lipase levels. 2. Chronic diffuse urinary bladder wall thickening may be related to chronic urinary bladder outlet obstruction, cystitis or neurogenic bladder. 3. Hepatic steatosis. 4. Cholecystectomy. 5. Calcific atherosclerotic disease aorta. 6. Chronic degenerative changes lumbar spine with prominent Schmorl's nodes. 7. Chronic anterior wedging T12. 8. Slight degenerative retrolisthesis L5 on S1. D/ / Anuel Chand / Anuel Chand Interpreting Provider: Anuel Chand Consult Discharge Plan - Plan Referrals: Sharla Bryant, [employer] [Primary Care Provider] - 1 week
[2018-12-12] MEDS: Magnesium Oxide 400 MG TABLET PO SCH ×3 (10:55→20:18)
[2018-12-12] MEDS ORDERED: levoFLOXacin 500 MG/100 ML 500 MG/100 ML BAG IVPB SCH (16:00)
[2018-12-13] MEDS: 0.45 % Sodium Chloride w/KCl 20 MEQ/1,000 ML MLS IVC SCH (02:37)
[2018-12-13 06:08] LABS: BUN/Creatinine Ratio 9 (6-26); Blood Urea Nitrogen 3 mg/dL (6-20); Calcium 7.9 mg/dL (8.6-10.3); Carbon Dioxide 20 mEq/L (23-29); Chloride 93 mEq/L (98-107); Glucose 74 mg/dL (70-105); Magnesium 1.4 mg/dL (1.6-2.6); Osmolality,Calculated 243 (280-300); Potassium 3.7 mEq/L (3.5-5.1); Sodium 119 mEq/L (136-145); eGFR For African Americans > 60 (> 60); eGFR For Non-African Americans > 60 (> 60)
[2018-12-13 06:09] VITALS: BP 144/100
[2018-12-13] MEDS: Lactobacillus 1 EACH CAP.SPRINK PO SCH (09:23)
[2018-12-13] MEDS: ALPRAZolam 0.5 MG TABLET PO PRN (09:23)
[2018-12-13] MEDS: Magnesium Oxide 400 MG TABLET PO SCH (09:23)
[2018-12-13] MEDS: Nicotine 21 MG PATCH.TD24 TD SCH (09:23)
[2018-12-13] MEDS: Thiamine (B-1) 100 MG TABLET PO SCH (09:23)
[2018-12-13] MEDS ORDERED: Magnesium Oxide 400 MG TABLET PO SCH (09:45)
--- NOTE | 2018-12-13 11:36 | Discharge Summary ---
Orders not resulted at time of discharge: Pending orders 12/11/18 10:35 Culture,Urine [RM] Stat Date of Encounter: 12/13/18 Time of Encounter: 11:25 - Discharge Diagnosis (1) Acute pancreatitis Priority: Primary Status: Acute Qualifiers: Pancreatitis type: alcohol induced Acute pancreatitis complication: no infection or necrosis Qualified Code(s): K85.20 - Alcohol induced acute pancreatitis without necrosis or infection (2) Hypokalemia Priority: Secondary Status: Resolved (3) Hyponatremia Priority: Secondary Status: Acute (4) Alcoholism /alcohol abuse Priority: Secondary Status: Chronic (5) Low vitamin D level Priority: Secondary Status: Chronic (6) COPD (chronic obstructive pulmonary disease) Priority: Secondary Status: Chronic Qualifiers: COPD type: unspecified COPD Qualified Code(s): J44.9 - Chronic obstructive pulmonary disease, unspecified (7) Hematuria Priority: Secondary Status: Acute Qualifiers: Hematuria type: unspecified type Qualified Code(s): R31.9 - Hematuria, unspecified Hospital course: Mr. Abebe is a 53 year old male who came to emergency room stating he had numerous episodes of nonbloody vomiting onset approximately 3 days previously. He also reports several episodes of diarrhea without visible blood. He denies fevers or chills. He reports pain in his left upper abdominal area since onset of vomiting. He was evaluated in emergency room and was felt to have acute pancreatitis. He was admitted to [facility] floor for ongoing care needs. Initial orders were written by the emergency room physician. I saw him on December 11 and performed a history and physical. He was given IV fluids. Antibiotics and analgesics were given as needed. Lipid profile showed triglyceride level low normal at 36 with total/HDL ratio 1.6. Lipase decreased to 655 on day of discharge. He tolerated clear liquid diet without difficulty. On December 13 he stated he felt stable for discharge home. Supplemental potassium was given and hypokalemia resolved by day of discharge. He will remain off lisinopril/HCTZ at discharge. He was started on metoprolol for hypertension. He will continue this at discharge and his PCP can monitor. On December 13 he was stable for discharge home. He will follow with his PCP Sharla Bryant CNP within 1 week. I strongly encouraged him to discontinue use of tobacco and alcohol. - Time Spent with Patient Total time spent providing and/or coordinating discharge services: - Discharge Medications Prescriptions: New Amoxicillin/Clavulanate [Augmentin] 875 mg PO BIDWM #6 tablet Lactobacillus [Culturelle] 1 each PO BID #6 cap.sprink Doxycycline 100 mg PO BID #6 capsule Metoprolol Succinate [Toprol Xl] 100 mg PO DAILY #30 tab.er.24h Discontinued Lisinopril-HCTZ 10-12.5 [Prinzide 10-12.5] 1 each PO DAILY Home Medications: Amoxicillin/Clavulanate [Augmentin] 875 mg PO BIDWM #6 tablet 12/13/18 [Rx] Doxycycline 100 mg PO BID #6 capsule 12/13/18 [Rx] Lactobacillus [Culturelle] 1 each PO BID #6 cap.sprink 12/13/18 [Rx] Metoprolol Succinate [Toprol Xl] 100 mg PO DAILY #30 tab.er.24h 12/13/18 [Rx] Allergies/Adverse Reactions: Allergy/AdvReac Type Severity Reaction Status Date / Time No Known Allergies Allergy Verified 12/11/18 10:12 Date of admission: 12/11/18 14:59 Primary care physician: Sharla Bryant CNP - Constitutional Vitals: Temp Pulse Resp BP Pulse Ox 98.4 F 82 18 144/100 100 12/13/18 06:07 12/13/18 06:07 12/13/18 06:07 12/13/18 06:07 12/13/18 06:07 General appearance: Present: answers questions appropriately - Patient Status Disposition: Home, Self-Care Condition: Fair - Discharge Instructions Follow Up With: Sharla Bryant CNP [Primary Care Provider] - 1 week (December 16 at 10am) - Diet and Activity Activity: resume usual activities as tolerated Diet: advance to your usual diet
--- NOTE | 2018-12-14 14:54 | Electrocardiograph Report ---
[place] [id number] Test Date: 2018-12-11 Pat Name: Johnathan Abebe Department: EDP-11 Room: [facility] Gender: M [employer]: : 1965 Requested By: Anthony Malik Order Number: [id number] Reading MD: Jacqueline Georges Measurements Intervals [place] Rate: 84 P: 57 WV: 174 QRS: 78 QRSD: 96 T: 36 QT: 381 QTc: 451 Interpretive Statements Sinus rhythm Probable anteroseptal infarct, old Electronically Signed On 12-14-2018 14:53:07 EDT by Jacqueline Georges
== END 2018-12-13 11:45 | disposition home or self-care (01) | DRG 439 ==
LOC: EMEROOPIK 10:11 → INPPIK 10:11
PROVIDERS: ADMIT Internal Medicine; ATTEND Internal Medicine

== ENCOUNTER 2019-01-24 00:29 | Observation (INO) ==
[2019-01-24] MEDS ORDERED: 0.9 % Sodium Chloride 1,000 ML IVC ONE (00:51)
[2019-01-24] MEDS ORDERED: Ketorolac 30 MG/ML VIAL IVP ONE (00:51)
[2019-01-24] MEDS ORDERED: Ondansetron 4 MG/2 ML VIAL IVP ONE (00:51)
--- NOTE | 2019-01-24 00:53 | Emergency Department Note ---
Disposition Clinical Impression: Hyponatremia Pancreatitis Qualifiers: Chronicity: acute Pancreatitis type: alcohol induced Acute pancreatitis complication: no infection or necrosis Qualified Code(s): K85.20 - Alcohol induced acute pancreatitis without necrosis or infection Disposition: Admitted As Inpatient Condition: Fair Referrals: NONE,PCP [Non-Partnered Physician] - Forms: ED Satisfaction Letter, Work/School Release Time of Disposition: 03:23 Abdominal Pain HPI - General Chief Complaint: ED Abdominal Pain Stated Complaint: abdominal pain Time Seen by Provider: 01/24/19 00:38 Source: patient, EMS Mode of arrival: EMS Limitations: no limitations Nursing Notes Reviewed: Yes Vital Signs Reviewed: Yes - History of Present Illness HPI Narrative: Patient presents to the ED complaining of epigastric abdominal pain, nausea, vomiting and diarrhea that started yesterday. He describes his pain as fluc tuating between sharp and dull. It is constant and he rates it an 8 out of 10 across the upper abdomen. He reports approximately 5 episodes of emesis and 3 episodes of watery diarrhea today. No blood in his vomit or emesis. He reports chills but no fever. States he has been unable able to eat or drink over the past few days. He reports increased urination with some frequency and urgency as well but no dysuria. He has a history of pancreatitis for which she was admitted in November for a few days. States symptoms are similar to that episode. He has not taken anything at home for his symptoms. He continues to drink several beers on a daily basis which she is done for the past 5 years. He last drank yesterday evening. He has smoked a pack per day for over 40 years as well. He denies any drug use. He has had a prior cholecystectomy. Otherwise history is notable only for high blood pressure, arthritis and remote history of seizures. His only current medication is metoprolol. Pain Scale: 10 - Related Data Previous Rx's Medication Instructions Recorded Metoprolol Succinate [Toprol Xl] 100 mg PO DAILY #30 tab.er.24h 12/13/18 Allergies Allergy/AdvReac Type Severity Reaction Status Date / Time No Known Allergies Allergy Verified 01/24/19 00:37 Constitutional: Reports: chills. Denies: fever, weakness, weight change Eyes: Denies: eye pain, eye discharge, vision change ENT ED: Denies: ear pain, throat pain, dental pain, hearing loss, epistaxis, congestion, dysphagia Cardiovascular: Denies: chest pain, palpitations, dyspnea on exertion, edema, syncope Respiratory: Denies: cough, dyspnea, wheezes, hemoptysis, stridor Gastrointestinal: Reports: as per HPI, abdominal pain, nausea, vomiting, diarrhea. Denies: constipation, hematemesis, melena, hematochezia Genitourinary: Reports: as per HPI, urgency, frequency. Denies: dysuria, hematuria Musculoskeletal: Denies: back pain, neck pain, arthralgia, myalgia Integumentary: Denies: rash, abrasion, lesions Neurological: Denies: headache, weakness, numbness, paresthesias, confusion, abnormal gait, vertigo Psychiatric: Denies: anxiety, depression, suicidal thoughts, homicidal thoughts, auditory hallucinations, visual hallucinations Endocrine: Denies: fatigue Hematological/Lymphatic: Denies: easy bleeding, easy bruising Allergic/Immunologic: Denies: facial swelling, urticaria Abdominal Pain PMH - Past Medical History Medical history: Reports: arthritis, hypertension, seizures, other Male Surgical History: Reports: cholecystectomy Psychiatric history: Reports: anxiety, depression - Social History Smoking status: Current every day smoker Alcohol use: Reports: heavy Drug use: Reports: none Physical Exam - General Limitations: no limitations General appearance: alert, in no apparent distress - Head Head exam: atraumatic, normocephalic, normal inspection - Eye Eye exam: Present: normal appearance, PERRL, EOMI, conjunctival injection - ENT ENT exam: normal exam, normal oropharynx, mucous membranes moist - Neck Neck exam: Present: normal inspection, full ROM, trachea midline - Chest Chest inspection: Present: normal inspection, symmetric chest wall rise - Respiratory Respiratory exam: Present: normal lung sounds bilaterally - Cardiovascular Cardiovascular exam: Present: regular rate, normal rhythm, normal heart sounds - Abdominal Exam Abdominal exam: Present: soft, tenderness, normal bowel sounds. Absent: distention, guarding, rebound, rigidity Abdominal tenderness: Present: RUQ, LUQ, epigastrium, moderate - Extremities Exam Extremities exam: Present: normal inspection, full ROM. Absent: tenderness, pedal edema - Back Exam Back exam: Present: normal inspection, full ROM. Absent: tenderness, CVA tenderness (R), CVA tenderness (L) - Neurological Exam Neurological exam: Present: alert, oriented X3 - Psychiatric Psychiatric exam: Present: normal affect, normal mood - Skin Skin exam: Present: warm, dry, intact, normal color Course Course Narrative: Patient presents to the ED complaining of epigastric abdominal pain, nausea, vomiting and diarrhea for 2 days with a recent history of alcoholic pancreatitis. On arrival he is afebrile, he would benefit stable and nontoxic in appearance. Will give IV fluids and medication for pain and nausea while labs are obtained. Patient likely has recurrent pancreatitis based on his history and symptoms. - Reevaluation(s) Reevaluation #1: CBC shows a normal white count but lactic acid is elevated at 3. He is mildly hyponatremic. LFTs are elevated in addition to that the amylase and lipase. His AST and ALT were not elevated on his previous admission. Will repeat CT scan to rule out any other pathology other than the suspected pancreatitis. Reevaluation #2: CT scan shows pancreatitis and a fatty liver. No other acute pathology. Patient is starting to feel better. Discussed with him his test results and recommendation for admission for IV fluids, pain control and trending of his labs and he is in agreement. He is requesting a nicotine patch which will be ordered. I spoke to the hospitalist on-call, Dr. Wylie who has agreed to accept the patient. Time: 03:09 Vital Signs Temperature 97.7 F 01/24/19 00:30 Pulse Rate 84 01/24/19 00:30 Respiratory Rate 16 01/24/19 00:30 Blood Pressure 136/79 01/24/19 00:30 O2 Sat by Pulse Oximetry 98 01/24/19 00:30 Temperature 97.7 F 01/24/19 00:30 Pulse Rate 87 01/24/19 01:52 Respiratory Rate 17 01/24/19 01:52 Blood Pressure 152/82 01/24/19 01:52 O2 Sat by Pulse Oximetry 98 01/24/19 01:52 Oxygen Delivery Oxygen Delivery Room Air Abdominal Pain - Differential Diagnosis Differential Diagnosis: Likely: abdominal pain non-specific, pancreatitis - Medical Records Medical records reviewed: Yes I reviewed the patient's medical records. - Lab Data Lab results reviewed: Yes I reviewed the patient's lab results. Result diagrams: 01/24/19 01:15 01/24/19 01:15 Lab Results 01/24/19 01/24/19 01/24/19 Range/Units 01:15 01:15 01:15 WBC 9.8 (4.3-11.1) K/mcL RBC 3.96 L (4.19-5.50) M/mcL Hgb 13.7 (12.9-16.9) g/dL Hct 36.5 L (37.5-50.1) % MCV 92.2 (83.0-100.0) fL MCH 34.6 H (28.0-33.3) pg MCHC 37.5 H (31.6-35.5) g/dL RDW 14.4 (11.5-14.5) % Plt Count 169 (140-400) K/mcL MPV 8.6 L (9.4-12.4) fL Immature Gran % 0.5 (0-4) % Seg Neutrophils % 84.8 % Lymphocytes % 7.5 % Monocytes % 7.0 % Eosinophils % 0.0 % Basophils % 0.2 % Neutrophils # 8.3 (1.6-8.9) K/mcL Lymphocytes # 0.7 (0.6-4.6) K/mcL Monocytes # 0.7 (0.0-1.3) K/mcL Eosinophils # 0.0 (0.0-0.6) K/mcL Basophils # 0.0 (0.0-0.2) K/mcL Sodium 129 L (136-145) mEq/L Potassium 3.2 L (3.5-5.1) mEq/L Chloride 92 L (98-107) mEq/L Carbon Dioxide 25 (23-29) mEq/L BUN 2 L (6-20) mg/dL Creatinine 0.45 L (0.70-1.30) mg/dL Est GFR ( Amer) > 60 (> 60) Est GFR (Non-Af Amer) > 60 (> 60) BUN/Creatinine Ratio 4 L (6-26) Glucose 102 (70-105) mg/dL Calculated Osmolality 264 L (280-300) Lactic Acid 3.0 H (0.5-2.2) mmol/L Calcium 8.5 L (8.6-10.3) mg/dL Magnesium 1.4 L (1.6-2.6) mg/dL Total Bilirubin 2.9 H (0.3-1.0) mg/dL AST 424 H (13-39) Units/L ALT 109 H (7-52) Units/L Alkaline Phosphatase 344 H (34-104) Units/L Serum Total Protein 6.5 (6.4-8.9) g/dL Albumin 2.9 L (3.5-5.7) g/dL Globulin 3.6 H (2.4-3.5) g/dL Albumin/Globulin Ratio 0.8 L (1.1-2.2) Amylase 171 H (29-103) Units/L Lipase 857 H (11-82) Units/L - Radiology Data Radiology results reviewed: Yes I reviewed the patient's radiology results. ITS Impressions Abdomen/Pelvis CT 01/24/19 02:07 IMPRESSION: Minimal peripancreatic edema suspicious of acute interstitial edematous pancreatitis. Mild wall thickening of the duodenum most likely reactive to acute pancreatitis. Fatty liver. Thickening of the urinary bladder suggestive of chronic outlet obstruction. Cystitis not excluded. D/ / Rusty Bonilla / Rusty Bonilla Interpreting Provider: Rusty Bonilla
[2019-01-24 01:33] LABS: Basophils % 0.2 %; Hematocrit 36.5 % (37.5-50.1); Hemoglobin 13.7 g/dL (12.9-16.9); Immature Granulocytes % 0.5 % (0-4); Lymphocytes # 0.7 K/mcL (0.6-4.6); Lymphocytes % 7.5 %; Mean Corpuscular Hemoglobin 34.6 pg (28.0-33.3); Mean Corpuscular Volume 92.2 fL (83.0-100.0); Mean Platelet Volume 8.6 fL (9.4-12.4); Monocytes # 0.7 K/mcL (0.0-1.3); Neutrophils # 8.3 K/mcL (1.6-8.9); Platelet Count 169 K/mcL (140-400); Red Blood Count 3.96 M/mcL (4.19-5.50); Red Cell Distribution Width 14.4 % (11.5-14.5); Segmented Neutrophils % 84.8 %; White Blood Count 9.8 K/mcL (4.3-11.1)
[2019-01-24 01:36] LABS: Mean Corpuscular HGB Conc 37.5 g/dL (31.6-35.5)
[2019-01-24 01:56] LABS: Alanine Aminotransferase 109 Units/L (7-52); Albumin 2.9 g/dL (3.5-5.7); Albumin/Globulin Ratio 0.8 (1.1-2.2); Alkaline Phosphatase 344 Units/L (34-104); Amylase 171 Units/L (29-103); Aspartate Amino Transferase 424 Units/L (13-39); BUN/Creatinine Ratio 4 (6-26); Bilirubin,Total 2.9 mg/dL (0.3-1.0); Blood Urea Nitrogen 2 mg/dL (6-20); Calcium 8.5 mg/dL (8.6-10.3); Carbon Dioxide 25 mEq/L (23-29); Chloride 92 mEq/L (98-107); Globulin 3.6 g/dL (2.4-3.5); Glucose 102 mg/dL (70-105); Lipase 857 Units/L (11-82); Magnesium 1.4 mg/dL (1.6-2.6); Osmolality,Calculated 264 (280-300); Potassium 3.2 mEq/L (3.5-5.1); Sodium 129 mEq/L (136-145); Total Protein 6.5 g/dL (6.4-8.9); eGFR For African Americans > 60 (> 60); eGFR For Non-African Americans > 60 (> 60)
[2019-01-24] MEDS ORDERED: 0.9 % Sodium Chloride 1,000 ML IVC SCH (02:00)
[2019-01-24] MEDS ORDERED: Isovue-370 500 ML BOTTLE IVP ONE (02:07)
[2019-01-24] MEDS ORDERED: Ketorolac 30 MG/ML VIAL IVP PRN ×2 (03:11→03:49)
[2019-01-24] MEDS ORDERED: Ondansetron 4 MG/2 ML VIAL IVP PRN ×3 (03:11→14:52)
[2019-01-24] MEDS ORDERED: Naloxone 0.4 MG/ML INJ IVP PRN ×2 (03:11→03:49)
[2019-01-24] MEDS: 0.9 % Sodium Chloride 1,000 ML IVC SCH ×2 (04:11→10:40)
[2019-01-24 07:24] LABS: Bilirubin,Urine Small (Negative); Blood,Urine Trace-intact (Negative); Clarity,Urine Cloudy (Clear); Color,Urine Yellow (Yellow); Glucose,Urine (UA) Normal (Normal); Ketones,Urine Negative (Negative); Leukocyte Esterase,Urine Large (Negative); Nitrite,Urine Negative (Negative); Protein,Urine Trace mg/dL (Neg-Trace); Specific Gravity,Urine 1.015 (1.010-1.025)
[2019-01-24 07:33] LABS: Bacteria,Urine Many per hpf (None-Few); Mucus,Urine Moderate (Few); Squamous Epithelial Cell,Urine Few per lpf (None-Few); WBC,Urine TNTC per hpf (0-3)
[2019-01-24] MEDS: Nicotine 21 MG PATCH.TD24 TD SCH (08:07)
[2019-01-24] MEDS: Metoprolol XL (24 HR) Succ 50 MG TAB.ER.24H PO SCH (08:08)
[2019-01-24] MEDS ORDERED: Metoprolol XL (24 HR) Succ 50 MG TAB.ER.24H PO SCH (09:00)
[2019-01-24] MEDS ORDERED: Nicotine 21 MG PATCH.TD24 TD SCH (09:00)
--- NOTE | 2019-01-24 14:32 | Internal Med History&Physical ---
Date of Encounter: 01/24/19 Time of Encounter: 14:05 Assessment and Plan (1) Pancreatitis Current visit: Yes Status: Acute IV fluids, analgesics, and anti-medics have been ordered. Diet will be progressed as tolerated. Qualifiers: Chronicity: acute Pancreatitis type: alcohol induced Acute pancreatitis complication: no infection or necrosis Qualified Code(s): K85.20 - Alcohol induced acute pancreatitis without necrosis or infection (2) Hyponatremia Current visit: Yes Status: Chronic Sodium level improved to 129 from level of 115 in September. Continue to monitor. (3) Hypophosphatemia Current visit: No Status: Acute Recheck phosphorous level in a.m. (4) Hypokalemia Current visit: No Status: Acute Potassium level 3.2 in emergency room. Supplemental potassium has been ordered. Recheck in a.m. (5) Hypomagnesemia Current visit: No Status: Acute Magnesium level 1.40 in emergency room. Supplemental magnesium will be given. Internal Medicine - H&P: HPI Chief complaint: Abdominal pain with vomiting Admitted From: Emergency Dept Plans for Post Hospital Care: Home History of present illness: Mr. Abebe is a 53 year old male who came to emergency room complaining of abdominal discomfort with a single episode of nonbloody vomiting onset January 22. He reports slight diarrhea. He denies fevers or chills. When the abdominal pain persisted he came to emergency room. Evaluation showed findings consistent with acute pancreatitis. He was admitted to [facility] floor for ongoing care needs. He is an alcoholic and states he drinks a few beers daily. He denies previous pancreatitis. He denies known disorders of his liver. He has had c holecystectomy. Past Med Surg Social Fam HX - Past Medical History Medical history: arthritis, hypertension, seizures, other Additional medical history: pt states he has arthritis in bilateral hips and left shoulder. HYPONATREMIA, pancreatsis Psychiatric history: anxiety, depression - Past Surgical History Surgical History: cholecystectomy - Social History Smoking Status: Current every day smoker Packs per day: 1 Smokeless Tobacco Status: No Alcohol use: heavy Drug use: none Internal Medicine - H&P: Meds Metoprolol Succinate [Toprol Xl] 100 mg PO DAILY #30 tab.er.24h 12/13/18 [Rx] Allergy/AdvReac Type Severity Reaction Status Date / Time No Known Allergies Allergy Verified 01/24/19 00:37 All Systems PM: A 10-system review of systems was performed and is negative for pertinent findings except as documented above in the HPI. Review of systems: Review of systems from his September 2018 [facility] hospitalization were reviewed and revised as below. Gen.: His weight has decreased from 63.503 kg on 10/06/2018 to 57.6 kg today. Cardiovascular: He has history of hypertension but denies SD heart failure angina DVT or pulmonary embolus Respiratory: He has smoked since age 10 up to 2 packs per day. He denies known chronic lung disease and does not use home oxygen. GI: As per history of present illness : He denies hematuria dysuria or kidney stones Neurologic: He had a seizure with hospitalization August 2017 at [facility]. The seizure was felt to be due to hyponatremia with alcohol abuse. He does not take seizure medication. He denies large distribution strokes. He states he has fallen occasionally at home but has not fallen recently. Endocrine: He denies diabetes thyroid disease or hyperlipidemia Hematology/oncology: He had anemia on labs during September hospitalization which has now resolved. He denies known internal malignancies other blood disorders. Psychiatric: He has anxiety and depression but denies other mental health issues [place] skeletal: He has history of low vitamin D level. 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 He has bilateral hip pain, right greater than left. He denies gout. - Constitutional Vitals: Temp Pulse Resp BP Pulse Ox 99.0 F 77 18 138/91 98 01/24/19 11:14 01/24/19 11:14 01/24/19 11:14 01/24/19 11:14 01/24/19 11:14 Exam: Gen.: He is a well-developed well-nourished male lying in bed who appears in no acute distress HEENT: Head is atraumatic and normocephalic. Eyes: EOMI. There is no scleral icterus. Mouth: Mucosa is moist. Neck: Supple and nontender. There is no thyromegaly or adenopathy noted. Heart: Regular without murmurs gallops or ectopics Lungs: No wheezes or crackles are heard. Abdomen: Soft and nontender. No masses or guarding are noted. Bowel sounds are present. Extremities: There is no cyanosis edema or clubbing noted. Dorsalis pedis and posterior tibial pulses are trace to 1+ palpable bilaterally. Neurologic: Mental status: He is talkative and a good historian. Cranial nerves: Smile is symmetric. Forehead wrinkles bilaterally. Tongue protrudes midline. EOMI. Motor: There is no pronator drift. Cerebellar: Fair to nose is intact bilaterally. Skin: Warm and dry Internal Med - H&P Results - Labs CBC & Chem 7: 01/24/19 01:15 01/24/19 01:15 Labs: Short CBC 01/24/19 Range/Units 01:15 WBC 9.8 (4.3-11.1) K/mcL Hgb 13.7 (12.9-16.9) g/dL Hct 36.5 L (37.5-50.1) % Plt Count 169 (140-400) K/mcL Neutrophils # 8.3 (1.6-8.9) K/mcL BMP 01/24/19 01:15 Sodium 129 L Potassium 3.2 L Chloride 92 L Carbon Dioxide 25 BUN 2 L Creatinine 0.45 L Glucose 102 Calcium 8.5 L Liver Function 01/24/19 Range/Units 01:15 Total Bilirubin 2.9 H (0.3-1.0) mg/dL AST 424 H (13-39) Units/L ALT 109 H (7-52) Units/L Alkaline Phosphatase 344 H (34-104) Units/L Albumin 2.9 L (3.5-5.7) g/dL Urine 01/24/19 Range/Units 07:00 Urine Color Yellow (Yellow) Urine Clarity Cloudy A (Clear) Urine pH 7.0 (5.0-8.0) pH Units Ur Specific [place] 1.015 (1.010-1.025) Urine Protein Trace (Neg-Trace) mg/dL Urine Glucose (UA) Normal (Normal) mg/dL - Impressions ITS Impressions Abdomen/Pelvis CT 01/24/19 02:07 IMPRESSION: Minimal peripancreatic edema suspicious of acute interstitial edematous pancreatitis. Mild wall thickening of the duodenum most likely reactive to acute pancreatitis. Fatty liver. Thickening of the urinary bladder suggestive of chronic outlet obstruction. Cystitis not excluded. D/ / 01/24/2019 07:16:40 Rusty Bonilla / anam Interpreting Provider: Rusty Bonilla - VTE Reasons for not Prescribing Prophylaxis: Treatment not Indicated - Low risk for VTE
[2019-01-24] MEDS ORDERED: cefTRIAXone 1,000 MG in Water for inj. (sterile) 10 ML IVP SCH (15:00)
[2019-01-24] MEDS: 0.9 % Sodium Chloride w KCl 20 MEQ/1,000 ML MLS IVC SCH (15:22)
[2019-01-24] MEDS: Magnesium Oxide 400 MG TABLET PO SCH (22:03)
[2019-01-24] MEDS: Lactobacillus 1 EACH CAP.SPRINK PO SCH (22:03)
[2019-01-25] MEDS: 0.9 % Sodium Chloride w KCl 20 MEQ/1,000 ML MLS IVC SCH (01:23)
[2019-01-25 07:09] LABS: Basophils % 0.5 %; Eosinophils # 0.1 K/mcL (0.0-0.6); Eosinophils % 0.9 %; Hematocrit 32.5 % (37.5-50.1); Hemoglobin 11.6 g/dL (12.9-16.9); Immature Granulocytes % 0.5 % (0-4); Lymphocytes # 2.2 K/mcL (0.6-4.6); Lymphocytes % 38.4 %; Mean Corpuscular HGB Conc 35.7 g/dL (31.6-35.5); Mean Corpuscular Hemoglobin 34.5 pg (28.0-33.3); Mean Corpuscular Volume 96.7 fL (83.0-100.0); Mean Platelet Volume 8.8 fL (9.4-12.4); Monocytes # 0.6 K/mcL (0.0-1.3); Monocytes % 10.6 %; Neutrophils # 2.8 K/mcL (1.6-8.9); Platelet Count 146 K/mcL (140-400); Red Blood Count 3.36 M/mcL (4.19-5.50); Red Cell Distribution Width 14.9 % (11.5-14.5); Segmented Neutrophils % 49.1 %; White Blood Count 5.8 K/mcL (4.3-11.1)
[2019-01-25 07:17] VITALS: BP 121/84
[2019-01-25 08:26] LABS: Alanine Aminotransferase 54 Units/L (7-52); Albumin 2.4 g/dL (3.5-5.7); Albumin/Globulin Ratio 0.8 (1.1-2.2); Alkaline Phosphatase 217 Units/L (34-104); Aspartate Amino Transferase 88 Units/L (13-39); BUN/Creatinine Ratio 7 (6-26); Blood Urea Nitrogen 3 mg/dL (6-20); Calcium 7.8 mg/dL (8.6-10.3); Carbon Dioxide 25 mEq/L (23-29); Chloride 99 mEq/L (98-107); Globulin 2.9 g/dL (2.4-3.5); Glucose 82 mg/dL (70-105); Lipase 229 Units/L (11-82); Magnesium 1.4 mg/dL (1.6-2.6); Osmolality,Calculated 264 (280-300); Phosphorous 2.3 mg/dL (2.7-4.5); Potassium 3.7 mEq/L (3.5-5.1); Sodium 129 mEq/L (136-145); Total Protein 5.3 g/dL (6.4-8.9); eGFR For African Americans > 60 (> 60); eGFR For Non-African Americans > 60 (> 60)
[2019-01-25] MEDS: Lactobacillus 1 EACH CAP.SPRINK PO SCH (09:16)
[2019-01-25] MEDS: Magnesium Oxide 400 MG TABLET PO SCH (09:16)
[2019-01-25] MEDS: Metoprolol XL (24 HR) Succ 50 MG TAB.ER.24H PO SCH (09:19)
[2019-01-25] MEDS: Nicotine 21 MG PATCH.TD24 TD SCH (09:20)
--- NOTE | 2019-01-25 09:29 | Discharge Summary ---
Orders not resulted at time of discharge: Pending orders 01/24/19 07:00 Culture,Urine [RM] Stat Date of Encounter: 01/25/19 Time of Encounter: 09:15 - Discharge Diagnosis (1) Pancreatitis Priority: Primary Status: Acute Qualifiers: Chronicity: acute Pancreatitis type: alcohol induced Acute pancreatitis complication: no infection or necrosis Qualified Code(s): K85.20 - Alcohol induced acute pancreatitis without necrosis or infection (2) Hyponatremia Priority: Secondary Status: Chronic (3) Hypophosphatemia Priority: Secondary Status: Acute (4) Hypokalemia Priority: Secondary Status: Acute (5) Hypomagnesemia Priority: Secondary Status: Acute Hospital course: Mr. Abebe is a 53 year old male who came to emergency room complaining of abdominal discomfort with a single episode of nonbloody vomiting onset January 22. He reports slight diarrhea. He denies fevers or chills. When the abdominal pain persisted he came to emergency room. Evaluation showed findings consistent with acute pancreatitis. He was admitted to [facility] floor for ongoing care needs. Initial orders were written by the emergency room physician. I saw him on January 24 and performed the history and physical. IV fluids were ordered. Analgesics and anti-emetics were given as needed. He had resolution of vomiting and abdominal pain by the time of discharge. He had adequate intake of oral food and fluids. Follow-up labs on January 25 showed lipase decreased to 229. LFTs also showed decreased levels from admission. Magnesium level returned low at 1.4. He was started on magnesium oxide and will continue this at discharge for 5 days. Phosphorus level returned low at 2.3. He will be given Neutra-Phos for 5 days. His PCP can monitor labs. Hypokalemia resolved with supplemental potassium. He will continue potassium chloride 10 mEq daily orally for 5 days at discharge. There were no other new problems and on January 25 he wished to be discharged home which I felt was reasonable. I encouraged him to discontinue the use of alcohol and tobacco. He will follow with his PCP Sharla Bryant CNP within 1 week. - Time Spent with Patient Total time spent providing and/or coordinating discharge services: - Discharge Medications Prescriptions: New Lactobacillus [Culturelle] 1 each PO BID #10 cap.sprink Magnesium Oxide [Mag-Ox] 400 mg PO DAILY #5 tablet Phos-NaK [Neutra-Phos] 1 each PO DAILY #5 powd.pack Cefdinir [Omnicef] 300 mg PO BID #10 capsule Potassium Chloride 10 meq PO DAILY #5 tab.er.prt Continued Metoprolol Succinate [Toprol Xl] 100 mg PO DAILY #30 tab.er.24h Home Medications: Metoprolol Succinate [Toprol Xl] 100 mg PO DAILY #30 tab.er.24h 12/13/18 [Rx] Cefdinir [Omnicef] 300 mg PO BID #10 capsule 01/25/19 [Rx] Lactobacillus [Culturelle] 1 each PO BID #10 cap.sprink 01/25/19 [Rx] Magnesium Oxide [Mag-Ox] 400 mg PO DAILY #5 tablet 01/25/19 [Rx] Phos-NaK [Neutra-Phos] 1 each PO DAILY #5 powd.pack 01/25/19 [Rx] Potassium Chloride 10 meq PO DAILY #5 tab.er.prt 01/25/19 [Rx] Allergies/Adverse Reactions: Allergy/AdvReac Type Severity Reaction Status Date / Time No Known Allergies Allergy Verified 01/24/19 00:37 Date of admission: 01/24/19 03:29 Primary care physician: Sharla Bryant CNP - Constitutional Vitals: Temp Pulse Resp BP Pulse Ox 98.6 F 74 16 121/84 97 01/25/19 07:16 01/25/19 07:16 01/25/19 07:16 01/25/19 07:16 01/25/19 07:16 - Patient Status Disposition: Home, Self-Care Condition: Good - Discharge Instructions Follow Up With: Sharla Bryant CNP [Primary Care Provider] - 1 week - Diet and Activity Activity: resume usual activities as tolerated Diet: advance to your usual diet - VTE Reasons for not Prescribing Prophylaxis: Treatment not Indicated - Low risk for VTE
== END 2019-01-25 09:50 | disposition home or self-care (01) ==
LOC: EMEROOPIK 00:29 → INPPIK 00:29
PROVIDERS: ADMIT Internal Medicine; ATTEND Internal Medicine

== ENCOUNTER 2019-10-24 22:13 | Observation (INO) ==
[2019-10-24] MEDS ORDERED: Thiamine (B-1) 100 MG in 0.9 % Sodium Chloride 100 ML IVPB ONE (22:16)
[2019-10-24] MEDS ORDERED: 0.9 % Sodium Chloride 1,000 ML IVC ONE (22:16)
[2019-10-24] MEDS ORDERED: MVI, adult with vitamin K 10 ML in 0.9 % Sodium Chloride 1,000 ML IVC ONE (22:16)
[2019-10-24] MEDS ORDERED: Ondansetron 4 MG/2 ML VIAL IVP ONE (22:19)
[2019-10-24 22:34] LABS: Basophils % 0.2 %; Eosinophils % 0.1 %; Hematocrit 31.5 % (37.5-50.1); Hemoglobin 11.3 g/dL (12.9-16.9); Immature Granulocytes % 2.1 % (0-4); Lymphocytes # 2.7 K/mcL (0.6-4.6); Lymphocytes % 20.6 %; Mean Corpuscular HGB Conc 35.9 g/dL (31.6-35.5); Mean Corpuscular Hemoglobin 33.3 pg (28.0-33.3); Mean Corpuscular Volume 92.9 fL (83.0-100.0); Mean Platelet Volume 8.5 fL (9.4-12.4); Monocytes # 0.8 K/mcL (0.0-1.3); Monocytes % 6.4 %; Neutrophils # 9.1 K/mcL (1.6-8.9); Platelet Count 305 K/mcL (140-400); Red Blood Count 3.39 M/mcL (4.19-5.50); Red Cell Distribution Width 16.7 % (11.5-14.5); Segmented Neutrophils % 70.6 %; White Blood Count 12.9 K/mcL (4.3-11.1)
[2019-10-24 22:42] LABS: INR 1.7; Prothrombin Time 19.8 Seconds (9.4-12.1)
[2019-10-24 22:45] LABS: Activated Partial Thrombo Time 30.6 Seconds (26.0-36.0)
[2019-10-24 22:55] LABS: Troponin I < 0.03 ng/mL (< 0.04)
[2019-10-24 23:22] LABS: Acetaminophen < 10 mcg/mL (10-20); Alanine Aminotransferase 35 Units/L (7-52); Albumin/Globulin Ratio 0.5 (1.1-2.2); Alkaline Phosphatase 178 Units/L (34-104); Aspartate Amino Transferase 31 Units/L (13-39); BUN/Creatinine Ratio 14 (6-26); Bilirubin,Total 0.9 mg/dL (0.3-1.0); Blood Urea Nitrogen 4 mg/dL (6-20); Calcium 7.4 mg/dL (8.6-10.3); Carbon Dioxide 22 mEq/L (23-29); Chloride 91 mEq/L (98-107); Ethanol < 10 mg/dL (Less than 10); Globulin 4.1 g/dL (2.4-3.5); Glucose 120 mg/dL (70-105); Lipase 47 Units/L (11-82); Magnesium 1.5 mg/dL (1.6-2.6); Osmolality,Calculated 246 (280-300); Potassium 3.6 mEq/L (3.5-5.1); Salicylate < 2.5 mg/dL (15.0-30.0); Total Protein 6.1 g/dL (6.4-8.9); eGFR For African Americans > 60 (> 60); eGFR For Non-African Americans > 60 (> 60)
[2019-10-24 23:43] LABS: Sodium 119 mEq/L (136-145)
[2019-10-25] MEDS ORDERED: MetroNIDAZOLE 500 MG/100 ML 500 MG/100 ML BAG IVPB ONE (00:20)
[2019-10-25] MEDS ORDERED: Morphine Sulfate 2 MG/ML SYRINGE IVP ONE (00:20)
[2019-10-25 00:27] LABS: Bilirubin,Urine Negative (Negative); Blood,Urine Trace-intact (Negative); Clarity,Urine Cloudy (Clear); Color,Urine Yellow (Yellow); Glucose,Urine (UA) Normal (Normal); Ketones,Urine Negative (Negative); Leukocyte Esterase,Urine Large (Negative); Nitrite,Urine Negative (Negative); Protein,Urine Negative (Neg-Trace); Specific Gravity,Urine 1.015 (1.010-1.025); Urobilinogen,Urine Normal (Normal)
[2019-10-25 00:31] LABS: Squamous Epithelial Cell,Urine Few per lpf (None-Few)
[2019-10-25 00:32] LABS: Bacteria,Urine Many per hpf (None-Few); RBC,Urine 0-3 per hpf (0-3); WBC,Urine TNTC per hpf (0-3)
[2019-10-25 00:33] LABS: Mucus,Urine Few per lpf (Few)
[2019-10-25 00:41] LABS: Amphetamine Screen,Urine Negative ng/mL (Cutoff=1000); Barbiturate Screen,Urine Negative ng/mL (Cutoff=200); Benzodiazepines Screen,Urine Negative ng/mL (Cutoff=200); Cannabinoid Screen,Urine Negative ng/mL (Cutoff = 50); Cocaine Screen,Urine Negative ng/mL (Cutoff= 300); Opiate Screen,Urine Negative ng/mL (Cutoff=300); Phencyclidine Screen,Urine Negative ng/mL (Cutoff=25)
[2019-10-25] MEDS ORDERED: MVI, adult with vitamin K 10 ML in 0.9 % Sodium Chloride 1,000 ML IVC ONE ×3 (01:45→02:00)
[2019-10-25] MEDS ORDERED: Ondansetron 4 MG/2 ML VIAL IVP PRN (02:00)
[2019-10-25] MEDS ORDERED: diazePAM 10 MG/2 ML SYRINGE IVP PRN (02:00)
[2019-10-25] MEDS ORDERED: Naloxone 0.4 MG/ML INJ IVP PRN (02:00)
[2019-10-25 04:27] LABS: Amylase 32 Units/L (29-103); BUN/Creatinine Ratio 17 (6-26); Blood Urea Nitrogen 4 mg/dL (6-20); Calcium 6.5 mg/dL (8.6-10.3); Carbon Dioxide 22 mEq/L (23-29); Chloride 97 mEq/L (98-107); Glucose 98 mg/dL (70-105); Lipase 23 Units/L (11-82); Osmolality,Calculated 251 (280-300); Potassium 3.2 mEq/L (3.5-5.1); Sodium 122 mEq/L (136-145); eGFR For African Americans > 60 (> 60); eGFR For Non-African Americans > 60 (> 60)
[2019-10-25 07:26] LABS: Blood Urea Nitrogen 3 mg/dL (6-20); Calcium 6.6 mg/dL (8.6-10.3); Carbon Dioxide 22 mEq/L (23-29); Chloride 98 mEq/L (98-107); Glucose 90 mg/dL (70-105); Osmolality,Calculated 254 (280-300); Potassium 3.4 mEq/L (3.5-5.1); Sodium 124 mEq/L (136-145)
[2019-10-25] MEDS ORDERED: Thiamine (B-1) 100 MG TABLET PO SCH (09:00)
[2019-10-25] MEDS ORDERED: Vitamin B Complex/Vit C/Vit E 1 EACH TABLET PO SCH (09:00)
[2019-10-25] MEDS ORDERED: Folic Acid 1 MG TABLET PO SCH (09:00)
[2019-10-25] MEDS ORDERED: 0.9 % Sodium Chloride 1,000 ML IVC SCH (09:15)
[2019-10-25 10:15] LABS: Hematocrit 28.9 % (37.5-50.1); Hemoglobin 10.1 g/dL (12.9-16.9); Mean Corpuscular HGB Conc 34.9 g/dL (31.6-35.5); Mean Corpuscular Hemoglobin 33.2 pg (28.0-33.3); Mean Corpuscular Volume 95.1 fL (83.0-100.0); Mean Platelet Volume 8.4 fL (9.4-12.4); Platelet Count 248 K/mcL (140-400); Red Blood Count 3.04 M/mcL (4.19-5.50); Red Cell Distribution Width 17.2 % (11.5-14.5); White Blood Count 11.2 K/mcL (4.3-11.1)
[2019-10-25 10:30] LABS: BUN/Creatinine Ratio 13 (6-26); Blood Urea Nitrogen 3 mg/dL (6-20); Calcium 6.8 mg/dL (8.6-10.3); Carbon Dioxide 23 mEq/L (23-29); Chloride 98 mEq/L (98-107); Glucose 83 mg/dL (70-105); Osmolality,Calculated 258 (280-300); Potassium 3.5 mEq/L (3.5-5.1); Sodium 126 mEq/L (136-145); eGFR For African Americans > 60 (> 60); eGFR For Non-African Americans > 60 (> 60)
[2019-10-25] MEDS ORDERED: Nicotine 21 MG PATCH.TD24 TD SCH (12:15)
[2019-10-25 14:15] VITALS: BP 106/70
[2019-10-25 14:42] LABS: BUN/Creatinine Ratio 13 (6-26); Blood Urea Nitrogen 3 mg/dL (6-20); Calcium 6.6 mg/dL (8.6-10.3); Carbon Dioxide 23 mEq/L (23-29); Chloride 100 mEq/L (98-107); Glucose 93 mg/dL (70-105); Osmolality,Calculated 258 (280-300); Potassium 3.6 mEq/L (3.5-5.1); Sodium 126 mEq/L (136-145); eGFR For African Americans > 60 (> 60); eGFR For Non-African Americans > 60 (> 60)
[2019-10-25] MEDS ORDERED: *HR* Heparin 5,000 UNIT/ML VIAL SQ SCH (22:00)
== END 2019-10-25 18:01 | disposition short-term general hospital (02) ==
LOC: INPPIK 22:13 → EMEROOPIK 22:13 → INPPIK 10-25 01:30
PROVIDERS: ADMIT Family Medicine; ATTEND Family Medicine